=== PATIENT | female | born 1945 | race Caucasian/White ===

== ENCOUNTER → 2017-06-13 | Outpatient (CLI) | payer OTHER ==
[~2017-06-13] MED LIST: ASPIR 8181 MG PO; CELEBREX 200 M200 M1 PO; CENTRUM SILVER1 EAC4 PO; FISH OIL 1,001000 M2 PO; IBUPROFEN 200200 M1 PO; LEVAQUIN 500 M500 M2 PO; LISINOPRIL10 MG PO; METFORMIN HCL500 MG PO; MOBIC7.5 MG PO; NORCO 5-325 TA1 EACH PO; NORVASC2.5 MG PO; NORVASC5 MG PO; PROTONIX40 M1 PO; SALONPAS GEL-P1 EAC1 TP; SENNA-S TABLET1 EACH PO; TRICOR145 MG PO; VESICARE 5 MG TA5 MG PO; VITAMIN B-12500 MCG PO; ZOCOR20 MG PO
== END ==
LOC: RAD 01:41
DX: Z12.31 Encounter for screening mammogram for malignant neoplasm of breast (principal)

== ENCOUNTER → 2017-09-24 | Outpatient (CLI) | payer OTHER ==
[~2017-09-24] VITALS: Ht 157.5 cm; Wt 126.1 kg
[~2017-09-24] MED LIST changes: -LEVAQUIN 500 M500 M2 PO; -NORCO 5-325 TA1 EACH PO; -NORVASC5 MG PO; -PROTONIX40 M1 PO; -SENNA-S TABLET1 EACH PO
--- NOTE | ~2017-09-24 | HPC ---
[facility] [place] [address] PAIN MANAGEMENT CONSULTATION Name: TOPHER MARTÍNEZ Room #: REG [facility] Sophia.#: [id number] Admission: 09/24/17 Attend Phys: Gee Allen DO Discharge: Date of : 45 Report #: [id number] THIS REPORT FOR: //name// CC: Hector Allen DATE OF SERVICE: 09/24/2017 HISTORY OF PRESENT ILLNESS: The patient is a 72-year-old female, prior seen in the pain clinic approximately 3 weeks ago for symptomatic lumbar radiculopathy, given a single epidural injection at that time with some 75% improvement of pain, though symptoms have begun to recur. The patient currently rates pain at 5 on a VAS. Notes pain is in the low back, radiating down the left buttock and leg, exacerbates with standing, walking and bending. She incidentally notes a history of some paresthesia going into the right fourth and fifth finger. PHYSICAL EXAMINATION: GENERAL: Shows pleasant 72-year-old female, morbidly obese with a BMI of 50.8 kilograms per meter squared. MUSCULOSKELETAL: Cervical range of motion is full, negative Lhermitte's. Upper extremity strength is preserved. Deep tendon reflexes are preserved, biceps, triceps, brachioradialis. Modestly positive Tinel's over the right radial and lesser so over the ulnar; left side is negative. Rises from chair using the armrest. Diffuse tenderness across the low back, moderately antalgic gait, positive straight leg raise on the left. Symptoms essentially unchanged from presentation, though subjective pain score is improved. ASSESSMENT: Symptomatic lumbar radiculopathy by clinical exam and history with a 75% improvement following initial injection, symptoms are beginning to recur. RECOMMENDATION: Repeat epidural injection under fluoroscopy today, L3-L4 left to midline. Follow up in 1 month for reevaluation. Cancel if doing well. PROCEDURE: Lumbar epidural steroid injection. PROCEDURE NOTE: After both written and informed consent to include risk of spinal cord damage, increased pain, weakness and dural puncture, the patient was taken to the fluoroscopy suite, placed in the prone position. After sterile prep and drape, a skin wheal with lidocaine was raised. A 22-gauge epidural Tuohy needle was inserted in the midline at L3-L4 left to midline with good loss to resistance. Negative aspiration for cerebrospinal fluid or blood was noted. Then 1 mL of Omnipaque under biplanar fluoroscopy showed good spread within the epidural space. This was followed with 80 mg of triamcinolone plus 1 mL of 1.5% preservative-free Xylocaine, 0.5 mL Xylocaine was then injected to flush the [address] [address] PAIN MANAGEMENT CONSULTATION Name: TOPHER MARTÍNEZ Room #: REG ABHIJEET Prater#: [id number] Admission: 09/24/17 Attend Phys: Gee Allen DO Discharge: Date of : 45 Report #: [id number] needle; it was removed. The patient was monitored for an appropriate period of time and discharged in good and stable condition. <ELECTRONICALLY SIGNED> By: Gee Allen DO 09/26/17 0819 1243 1701 Gee Allen DO /nt
[2017-09-24 12:28] VITALS: BP 166/93
== END | disposition home or self-care (01) ==
LOC: PAIN 07:04
DX: M54.16 Radiculopathy, lumbar region (principal); Z68.43 Body mass index [BMI] 50.0-59.9, adult; E66.01 Morbid (severe) obesity due to excess calories; Z87.891 Personal history of nicotine dependence

== ENCOUNTER → 2017-12-26 | Outpatient (CLI) | payer OTHER ==
[~2017-12-26] MED LIST changes: +PROTONIX40 M1 PO
== END ==
LOC: RAD 01:29
DX: N63.20 Unspecified lump in the left breast, unspecified quadrant (principal); N63.10 Unspecified lump in the right breast, unspecified quadrant; R92.2 Inconclusive mammogram; R92.8 Other abnormal and inconclusive findings on diagnostic imaging of breast

== ENCOUNTER → 2017-12-28 | Outpatient (CLI) | payer OTHER ==
[~2017-12-28] VITALS: Ht 154.9 cm; Wt 127.0 kg
--- NOTE | ~2017-12-28 | P ---
[facility] [place] [address] PROCEDURE REPORT Name: TOPHER MARTÍNEZ Room #: REG [facility].#: [id number] Admission: 12/28/17 Attend Phys: Ayo Elizabeth MD Discharge: Date of : 45 Report #: [id number] THIS REPORT FOR: //name// CC: Ayo Perez MD OUTPATIENT COLONOSCOPY BRIEF HISTORY: The patient is a 72-year-old woman for average risk screening colonoscopy. PREOPERATIVE DIAGNOSIS: Average risk colonoscopy. POSTOPERATIVE DIAGNOSES: 1. Normal screening colonoscopy. 2. Internal hemorrhoids. MEDICATIONS: Deep sedation with propofol per anesthesia. SPECIMEN: None. ESTIMATED BLOOD LOSS: None. PROCEDURE: Colonoscopy to cecum and terminal ileum. DESCRIPTION OF PROCEDURE: With the patient in left lateral decubitus position, digital examination was completed which revealed no abnormalities. Subsequently, the Olympus video colonoscope was introduced into the rectum, advanced under direct vision to the cecum. Done with minimal difficulty. The cecum was identified by the ileocecal valve and the appendiceal orifice. I was able to visualize the distal segment of terminal ileum, which was inspected and noted to be unremarkable. At that point, the scope was slowly withdrawn and careful circumferential views obtained. Overall, the prep was good. The mucosa was within normal limits, normal vascular pattern, normal light reflex. As we withdrew the scope, the mucosa was within normal limits, normal vascular pattern, normal light reflex. No mucosal abnormalities were seen. Polyps were not seen on this examination. The scope was withdrawn in the rectum. Upon retroflexion, small hemorrhoids were seen. Scope was withdrawn. The patient tolerated the procedure well. CONDITION OF THE PATIENT UPON DISCHARGE: Following procedure, the patient was drowsy, arousable and conversant and will be discharged to home when fully ambulatory. INSTRUCTIONS TO THE PATIENT AND FAMILY AT THE TIME OF DISCHARGE: No neoplastic lesions were seen. This is considered a negative average risk screening [facility] [address] [place] [address] PROCEDURE REPORT Name: TOPHER MARTÍNEZ Room #: REG [facility]#: [id number] Admission: 12/28/17 Attend Phys: Ayo Elizabeth MD Discharge: Date of : 45 Report #: [id number] colonoscopy. At this point, would advise the patient to return for followup colon exam in 10 years. Also, advised the patient to lose weight as obesity is a risk factor for colon cancer. She will return to care of Dr. Hector Perez and return to see me as needed. Last colonoscopy was 10 years ago. Withdrawal time from the cecum was 11 minutes 23 seconds. <ELECTRONICALLY SIGNED> By: Ayo Elizabeth MD 12/28/17 1645 1000 [id number] Ayo Elizabeth MD /nt
== END | disposition short-term general hospital (02) ==
LOC: GI 08:06
DX: Z12.11 Encounter for screening for malignant neoplasm of colon (principal); K64.8 Other hemorrhoids; I10 Essential (primary) hypertension; E11.9 Type 2 diabetes mellitus without complications; E66.9 Obesity, unspecified; E78.5 Hyperlipidemia, unspecified; K21.9 Gastro-esophageal reflux disease without esophagitis; Z79.82 Long term (current) use of aspirin; Z79.84 Long term (current) use of oral hypoglycemic drugs; Z79.899 Other long term (current) drug therapy; Z87.891 Personal history of nicotine dependence; Z98.890 Other specified postprocedural states; Z68.43 Body mass index [BMI] 50.0-59.9, adult
CPT/HCPCS: 62110; 62900

== ENCOUNTER → 2018-01-01 | Outpatient (CLI) | payer OTHER ==
--- NOTE | ~2018-01-01 | PATH ---
[facility] [address] [place] [address] PATHOLOGY RPT PROCEDURE Name: SARA MILLER Room #: REG ABHIJEET Cortes.#: [id number] Admission: 01/01/18 Date of : 45 Discharge: Report #: [id number] Path Case #: [id number] [facility] Accession Number: [id number] . 01 Material submitted: . PART A: RIGHT BREAST MASS PART B: LEFT MID CENTRAL BREAST . 01 Clinical history: . A. Right breast mass B. Left breast calcifications . 02 Diagnosis: A. Breast, right breast 12:00 SA, needle core biopsy: - DETACHED FRAGMENTS OF ATYPICAL PAPILLARY LESION (PLEASE SEE COMMENT). . B. 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 - Negative for atypia or malignancy (please see comment). [facility]/01/04/2018 . 02 Comment: Immunohistochemical stains are performed on block A3. The papilloma shows loss of mosaic pattern with CK5/6, and loss of myoepithelial cells with nonreactive pattern on p63 and SMMHC immunohistochemical stains within the detached fragments of the papillary lesion. The differential diagnosis of this lesion is either atypical ductal hyperplasia involving a papilloma, or papillary DCIS. Please note sample represents a minute portion of a larger lesion and may not be entirely access representative. . CK5/6 is performed on block B2 and shows intact mosaic pattern consistent with usual ductal hyperplasia. . Co-review: Dr. Kamryn Berrios. (IUV:pit 01/04/2018) . 02 Electronically signed: . Delicia Glaser MD, Pathologist NPI- [id number] . 01 Gross description: . A. Received in formalin labeled "Sara Miller, right breast," and additionally labeled on the requisition as "12:00 SA," are multiple needle cores of yellow-lopez fibrofatty tissue measuring 1.3 x 1.6 x 0.4 cm in aggregate dimensions. The tissue submitted in its entirety in cassette A1 through A3. The cold ischemic time and total formalin fixation time is [address] [address] PATHOLOGY RPT PROCEDURE Name: SARA MILLER Room #: REG [facility] Prater#: [id number] Admission: 01/01/18 Date of : 45 Discharge: Report #: [id number] Path Case #: [id number] unknown. The specimen will be out of formalin at 9:50 PM, December 02, 2017. . B. Received in formalin labeled "Sara Miller, left," and additionally labeled on the requisition as "central inferior," are multiple needle cores of yellow-lopez fibrofatty tissue measuring 3.8 x 3.9 x 1.4 cm in aggregate dimensions. Also received is a plastic cassette containing multiple cores of yellow-lopez fibrofatty tissue measuring 1.3 x 0.6 x 0.4 cm in maximum dimensions. The tissue in the cassette is transferred to cassette B3, and the remaining tissue submitted entirely in cassette B1 and B2. The cold ischemic time and total formalin fixation time is unknown. The specimen will be out of formalin at 9:50 PM, December 02, 2017. (TSD; 01/01/2018) TOB/TOB . 02 Microscopic: . . . 02 Pathologist provided ICD-10: D24.1, N62 . 02 CPT . 521551, 903419, P53410, Z23935 Performed at: [address], [place] [id number] MD Alen Walsh MD Phone: [phone] Performed at: [address] [id number] MD Delicia Glaser MD Phone: [phone]
== END | disposition home or self-care (01) ==
LOC: ULTRA 09:35
DX: D24.2 Benign neoplasm of left breast (principal); D24.1 Benign neoplasm of right breast; N60.82 Other benign mammary dysplasias of left breast; R92.1 Mammographic calcification found on diagnostic imaging of breast; I10 Essential (primary) hypertension; E11.9 Type 2 diabetes mellitus without complications; E78.5 Hyperlipidemia, unspecified; E66.09 Other obesity due to excess calories; K21.9 Gastro-esophageal reflux disease without esophagitis; Z79.82 Long term (current) use of aspirin; Z79.899 Other long term (current) drug therapy; Z87.891 Personal history of nicotine dependence; Z98.890 Other specified postprocedural states

== ENCOUNTER → 2018-03-04 | Outpatient (CLI) | payer OTHER ==
[~2018-03-04] MED LIST changes: +LEVAQUIN 500 M500 M2 PO; +NORCO 5-325 TA1 EACH PO; +NORVASC5 MG PO; +SENNA-S TABLET1 EACH PO
== END ==
LOC: RAD 11:48
DX: J18.9 Pneumonia, unspecified organism (principal); I10 Essential (primary) hypertension; E11.9 Type 2 diabetes mellitus without complications; E66.01 Morbid (severe) obesity due to excess calories

== ENCOUNTER → 2018-05-14 | Outpatient (CLI) | payer OTHER ==
--- NOTE | ~2018-05-14 | SLE ---
[facility] [place] [address] POLYSOMNOGRAPHY STUDY Name: TOPHER MARTÍNEZ Room #: REG [facility]#: [id number] Admission: 05/14/18 Attend Phys: Buck Serrano MD Discharge: Date of : 45 Report #: [id number] THIS REPORT FOR: //name// CC: Buck Mora MD DATE OF SERVICE: 05/14/2018 ATTENDING PHYSICIAN: Dr. Arcenio Mora. The patient is 72 years old who weighs 282 pounds and is 61 inches tall with a BMI of 53.3. The patient's [place] score was 6. The patient underwent home sleep study performed by [facility]. Total recording time was 455 minutes. During the night study, the patient had 56 obstructive apneas, 2 mixed apneas, no central apneas and 310 hypopneas. The patient's apnea hypopnea index was 61 per hour. Supine index 61 per hour as well. Nocturnal oximetry study revealed an average oxygen saturation of 83% with the lowest of 60%. 384 minutes were spent at an oxygen saturation of less than 90% and 102 minutes were spent at an oxygen saturation of less than 80%. Mean heart rate was 81 beats per minute with a maximum 108 beats per minute. IMPRESSION: 1. Severe sleep apnea-hypopnea syndrome at an apnea hypopnea index of 61 per hour. 2. Severe nocturnal hypoxia secondary to obstructive sleep apnea. RECOMMENDATIONS: 1. The patient should return for in-lab CPAP titration study. 2. Once optimum CPAP pressure is achieved, then follow up in 4-6 weeks to assess compliance with CPAP and to document clinical improvement. 3. Weight loss is strongly advised. 4. Avoid BATCH FREEZER depressants. 5. Cautioned regarding driving until symptoms of sleep apnea resolved with the use of CPAP. <ELECTRONICALLY SIGNED> By: Buck Serrano MD 05/19/182219 03 11 Buck Serrano MD /nt
== END ==
LOC: SLEEPLAB 10:06
DX: G47.33 Obstructive sleep apnea (adult) (pediatric) (principal); R09.02 Hypoxemia

== ENCOUNTER → 2018-08-05 | Outpatient (CLI) | payer OTHER | LOC: NUC 10:12 | DX: M85.851 Other specified disorders of bone density and structure, right thigh (principal); Z78.0 Asymptomatic menopausal state; M54.5 Low back pain ==

== ENCOUNTER → 2018-09-08 | Outpatient (CLI) | payer OTHER ==
--- NOTE | 2018-09-11 16:03 | SLE ---
[facility] [place] [address] POLYSOMNOGRAPHY STUDY Name: TOPHER MARTÍNEZ Room #: REG [facility].#: [id number] Admission: 09/08/18 ������������������ Attend Phys: Buck Serrano MD Discharge: ������������������ Date of : 45 Report #: [id number] THIS REPORT FOR: //name// CC: Buck Mora MD DATE OF SERVICE: 09/08/2018 SLEEP STUDY ATTENDING PHYSICIAN: Dr. Arcenio Mora. The patient is 73 years old, who weighs 282 pounds with a BMI of 53. The patient's [place] score was 12. The patient had a home sleep study and was found to have severe obstructive sleep apnea at an AHI of 61 per hour. The patient was referred back for in-lab CPAP titration study. The patient also had severe nocturnal hypoxia as well. During the night of study, the patient spent 521 minutes in bed and slept for 345 minutes with a sleep efficiency of 66%. Sleep latency was 18 minutes with a REM latency of 131 minutes. Overall, sleep architecture showed increased stage 1 and stage 2 sleep, absent N3 sleep and normal REM sleep. EKG monitoring revealed an average heart rate of 71 beats per minute. No sustained arrhythmias observed. PLMS were seen at an index of 39 per hour and 4 per hour caused EEG arousals. The patient was started on CPAP initially, but the patient had panic attack with CPAP and was switched to BiPAP at 8/4. The patient's BiPAP pressure was increased all the way up to 22/15, however respiratory events were still persistent, especially hypopneas. The patient was then switched to CPAP at a pressure of 17 cm water and continued towards the end at the same pressure. The patient had 121 minutes of sleep including 39 minutes of REM sleep. The patient had lateral REM sleep. No supine sleep observed. The patient did well at this pressure at an AHI of 0.5 per hour and oxygen saturation remained above 88%. This would be the final therapeutic pressure. IMPRESSION: 1. Severe sleep apnea diagnosed by home sleep study. 2. Moderate periodic limb movements of sleep. RECOMMENDATIONS: 1. CPAP at 17 cm water completely eliminated the patient's sleep apnea and should be used on a nightly basis. [facility] [address] [place] [address] POLYSOMNOGRAPHY STUDY Name: TOPHER MARTÍNEZ Room #: REG [facility] Moi#: [id number] Admission: 09/08/18 ������������������ Attend Phys: Buck Serrano MD Discharge: ������������������ Date of : 45 Report #: [id number] 2. Follow up in 4-6 weeks to assess compliance and to document clinical improvement with CPAP. 3. Weight loss is strongly advised. 4. Avoid [employer] depressants. 5. Cautioned regarding driving until symptoms of sleep apnea resolve with the use of CPAP. 6. The patient should also be further evaluated for symptoms of restless legs during the day and if present, it can be treated with dopaminergic agonist agents. ��������������������������������������������� <ELECTRONICALLY SIGNED> ���������������������������������������� By: Buck Serrano MD ��������������������������������������������� 09/11/18 1603 0725 0805 Buck Serrano MD /nt
== END ==
LOC: SLEEPLAB 16:09
DX: G47.33 Obstructive sleep apnea (adult) (pediatric) (principal); G47.61 Periodic limb movement disorder

== ENCOUNTER → 2018-12-19 | Outpatient (CLI) | payer OTHER | LOC: RAD 09:05 | DX: R92.1 Mammographic calcification found on diagnostic imaging of breast (principal); R92.2 Inconclusive mammogram; Z90.11 Acquired absence of right breast and nipple; Z85.3 Personal history of malignant neoplasm of breast ==

== ENCOUNTER → 2019-05-02 | Outpatient (CLI) | payer OTHER ==
[~2019-05-02] VITALS: Ht 154.9 cm; Wt 128.8 kg
[2019-05-02 09:30] VITALS: BP 179/63
[2019-05-02 09:30] LABS: HEMATOCRIT 43.5 % (37.0-47.0); HEMOGLOBIN 14.4 gm/dL (12.0-15.0); MCHC 33.2 g/dL (28.0-37.0); MCV 93.5 fL (80.0-100.0); RBC 4.65 mil/uL (4.20-5.00); RDW 14.2 % (10.5-14.5); WBC 7.9 thou/uL (4.0-11.0)
[2019-05-02 09:38] LABS: POTASSIUM 4.7 mmol/L (3.5-5.1)
--- NOTE | 2019-05-12 11:20 | CATHLAB ---
[facility] [address] [place] [address] INVASIVE PROCEDURE REPORT Name: TOPHER MARTÍNEZ [id number] Admission: 05/02/19 Attend Phys: Twan Schmid Discharge: Date of : 45 Report #: [id number] THIS REPORT FOR: //name// APPROVED REPORT Study performed: 05/02/2019 12:17:52 Patient Details Patient Status: Out-Patient Room #: The patient is a 73 year-old female Event Personnel Twan Walter Aircraft Designer, Irma Zhang RTR, WILDLIFE REMOVAL SPECIALIST Monitor, Chika Allen RN RN, Geni Good RTR Scrub Procedures Performed Art Access - R femoral artery* Left Heart Cath w/or w/o Coronaries [id number] [facility] Hemostasis with Manual pressure 02735 Mod Sed Same Phys/QHP Ea 926008 98152 Initial Mod Sed Same Phys/QHP Gr5y 331708, supervision of conscious sedation Indication Positive stress test Procedure Narrative The Right Groin^ was infiltrated with 1% Lidocaine subcutaneous anesthesia. A PINNACLE 4FR Sheath #[id number] sheath was inserted into the RFA^. Coronary angiography was performed using coronary diagnostic catheters. The right coronary system was accessed and visualized with a JR4 catheter. The left coronary system was accessed and visualized with a JL4 catheter. The left ventricle was accessed and visualized with a ANGLED PIGTAIL catheter. Left ventricular/Aortic Valve gradient assessed via catheter pullback. Hemostasis was obtained with manual pressure following sheath removal without any complications. There was no hematoma. Intraoperative Conscious Sedation Sedation start time: 12:06 Case end Time: 12:44 Versed 2 mg Fluoro Time: 4.60 minutes Dose: DAP 49444.00 cGycm2 1813 mGy Contrast Type and Amount: Omnipaque 50 ml [facility] [place] [address] INVASIVE PROCEDURE REPORT Name: TOPHER MARTÍNEZ Room #: REG ANDREA Prater#: [id number] Admission: 05/02/19 Attend Phys: Twan Schmid Discharge: Date of : 45 Report #: [id number] Coronary Angiography The patient's coronary anatomy is right dominant. Diagnostic Cath Left Main Left main is normal origin and caliber bifurcates that anterior descending left circumflex. It is short in length and lumen irregularities are noted but no obstructive lesions present LAD Moderate caliber type III vessel courses in the anterior interventricular sulcus giving rise to septal and diagonal branches. It is tapers towards the apex and has luminal irregularities. In the distal third the vessel is quite small at less than 1 mm in diameter and appears to be a focal eccentric lesion that is greater than 50%. Diagonal 1 Small insignificant caliber vessel at high grade lesion Diagonal 2 Small insignificant caliber vessel without high-grade lesions Circumflex Moderate caliber vessel courses in the AV groove. Gives rise to lateral wall marginal branches and terminates small-caliber vessel and the posterior aspect of the left ventricle. Is free of high-grade lesions noted OM1 Small to moderate caliber vessel coursing along lateral aspect of the left ventricle. There is a presence of a small narrowing the distal third of the vessel after a bifurcating branch origin is noted. This is not flow-limiting but may be less than 50% in the vessel that's half a millimeter in diameter OM2 Insignificant caliber posterior wall branch OM3 Insignificant caliber posterior wall branches Right Coronary Moderate caliber vessel of normal origin coursing the AV groove to the crux of the heart to work is a moderate calibered posterior descending artery. This was circulation consists of 2 small posterior wall branches tortuous in its course towards the apex are free of high-grade disease. The vessel itself is free of high-grade disease R PDA Moderate caliber vessel coursing towards the apex tapering rapidly the distal third. It is tortuous in its course but free of high-grade stenosis Hemodynamics The aortic pressure is 150/78 mmHg with a mean of 106 mmHg. The left ventricular pressure is 175/18 mmHg with a mean of mmHg. The left ventricular end diastolic pressure is 30 mmHg. Conclusion [facility] [address] [place] [address] INVASIVE PROCEDURE REPORT Name: TOPHER MARTÍNEZ Room #: REG ANDREA Praetr#: [id number] Admission: 05/02/19 Attend Phys: Twan Schmid Discharge: Date of : 45 Report #: [id number] 1. Essentially normal coronary arteries with only luminal irregularities present 2. Normal hemodynamics Recommendations Medical Therapy <ELECTRONICALLY SIGNED> By: Twan Walter MD 05/12/19 1120 1120 112 Twan Walter MD /INF
== END | disposition home or self-care (01) ==
LOC: CATH 08:40
PROVIDERS: Internal Medicine
DX: R94.39 Abnormal result of other cardiovascular function study (principal); R06.09 Other forms of dyspnea; I11.0 Hypertensive heart disease with heart failure; I50.9 Heart failure, unspecified; E11.9 Type 2 diabetes mellitus without complications; E78.5 Hyperlipidemia, unspecified; K21.9 Gastro-esophageal reflux disease without esophagitis; J44.9 Chronic obstructive pulmonary disease, unspecified; E66.01 Morbid (severe) obesity due to excess calories; Z98.890 Other specified postprocedural states; Z87.891 Personal history of nicotine dependence; Z79.82 Long term (current) use of aspirin; Z79.899 Other long term (current) drug therapy; Z68.43 Body mass index [BMI] 50.0-59.9, adult

== ENCOUNTER → 2019-12-22 | Outpatient (CLI) | payer OTHER | LOC: BC 10:46 | PROVIDERS: ATTEND Family Medicine | DX: D05.11 Intraductal carcinoma in situ of right breast (principal) ==

== ENCOUNTER 2020-01-15 14:31 | Inpatient (IN) | payer OTHER ==
[~2020-01-15] VITALS: Ht 152.4 cm; Wt 134.7 kg
[2020-01-15 14:50] VITALS: BP 103/57
[2020-01-15 15:42] LABS: BASOPHILS 0.7 % (0.0-2.0); EOSINOPHILS 1.2 % (0.0-3.0); HEMATOCRIT 41.8 % (37.0-47.0); HEMOGLOBIN 14.3 gm/dL (12.0-15.0); LYMPHOCYTES 8.6 % (24.0-44.0); MCH 32.4 pg (26.0-34.0); MCHC 34.1 g/dL (28.0-37.0); MONOCYTES 9.3 % (1.0-8.0); PLATELET COUNT 578 thou/uL (150-400); POLYS 80.2 % (36.0-66.0); RDW 14.9 % (10.5-14.5); WBC 9.9 thou/uL (4.0-11.0)
[2020-01-15 16:34] LABS: ANION GAP 5 mmol/L (7-16); BUN 23 mg/dL (7-18); CALCIUM 9.4 mg/dL (8.5-10.1); CHLORIDE 103 mmol/L (98-107); CO2 31 mmol/L (21-32); CREATININE 0.9 mg/dL (0.6-1.0); GLUCOSE 120 mg/dL (74-106); SODIUM 139 mmol/L (136-145)
[2020-01-15 16:43] LABS: TROPONIN-I <0.06 ng/mL (<0.06)
[2020-01-15 18:22] VITALS: BP 133/69
[2020-01-15 18:40] VITALS: BP 139/81
[2020-01-15 19:50] VITALS: BP 139/65
[2020-01-15 23:18] VITALS: BP 139/65
[2020-01-15 23:30] LABS: TSH 0.221 uIU/mL (0.358-3.740)
[2020-01-16 00:17] VITALS: BP 136/75
[2020-01-16] MEDS ORDERED: ANORO ELLIPTA1 EACH (00:28)
--- NOTE | 2020-01-16 01:27 | NUR ---
ASSUMED CARE OF PATIENT AT 1900. PATIENT CONTINUES ON CARDIZEM DRIP FOR AFIB. AT 2310 INCREASED DRIP RATE TO 15 MG/HR ACCORDING TO PROTOCOL HEART RATE CONSISTENTLY IN 120s. PATIENT TOLERATED CHANGE WELL AND HEART RATE DECREASED MOSTLY TO 90s BUT FLUCTUATED BETWEEN UPPER 80s AND 100s. PATIENT HAD NO C/O PAIN DURING ASSESSMENTS. PATIENT DOES HAVE A LOOSE PRODUCTIVE COUGH WITH COARSE/DIM LUNG SOUNDS. PATIENT AMBULATES WITH WALKER TO BATHROOM AND IS A BIT UNSTEADY ON FEET.
[2020-01-16 03:05] VITALS: BP 127/55
[2020-01-16 04:37] VITALS: BP 127/55
[2020-01-16 05:32] LABS: ABSOLUTE NEUTROPHILS 6.3 thou/uL (1.4-8.2); BASOPHILS 0.9 % (0.0-2.0); EOSINOPHILS 1.7 % (0.0-3.0); HEMATOCRIT 40.7 % (37.0-47.0); HEMOGLOBIN 13.2 gm/dL (12.0-15.0); LYMPHOCYTES 13.1 % (24.0-44.0); MCH 31.2 pg (26.0-34.0); MCHC 32.4 g/dL (28.0-37.0); MCV 96.1 fL (80.0-100.0); MONOCYTES 9.1 % (1.0-8.0); POLYS 75.2 % (36.0-66.0); RBC 4.24 mil/uL (4.20-5.00); RDW 15.3 % (10.5-14.5); WBC 8.3 thou/uL (4.0-11.0)
[2020-01-16 05:41] LABS: CALCIUM 8.9 mg/dL (8.5-10.1); CREATININE 1.2 mg/dL (0.6-1.0); MAGNESIUM 1.8 mg/dL (1.8-2.4); POTASSIUM 4.5 mmol/L (3.5-5.1)
[2020-01-16 05:53] LABS: PLATELET COUNT 485 thou/uL (150-400)
--- NOTE | 2020-01-16 09:10 | EKG ---
[facility] Stephane [address] [place] [address] ELECTROCARDIOGRAM REPORT Name: TOPHER MARTÍNEZ Room #: 205-P ADM IN M.R.#: [id number] Admission: 01/15/20 Attend Phys: Billy Storm MD Discharge: Date of : 45 Report #: [id number] THIS REPORT FOR: cc: Hetcor Perez MD, Rene P. 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: KF : 1945 Requested By: Dean Romero Order Number: [id number] MD: Christoph Hunt Measurements Intervals [place] Rate: 141 P: [place]: QRS: -2 QRSD: 101 T: 70 QT: 313 QTc: 480 Interpretive Statements Atrial fibrillation Poor R wave progression Compared to ECG 02/05/2018 14:32:58 Sinus rhythm no longer present Electronically Signed On 01-16-2020 9:10:09 CDT by Christoph Hunt [email or web address] <ELECTRONICALLY SIGNED> By: Christoph Hunt MD, [facility] 01/16/20 0910 1502 1502 Christoph Hunt MD, [facility] /EPI
--- NOTE | 2020-01-16 09:18 | EKG ---
[facility] Stephane Calabrese [facility] [place] [address] ELECTROCARDIOGRAM REPORT Name: TOPHER MARTÍNEZ Room #: 205-P ADM IN M.R.#: [id number] Admission: 01/15/20 Attend Phys: Billy Storm MD Discharge: Date of : 45 Report #: [id number] THIS REPORT FOR: cc: Hector Perez MD, Rene P. MD Lundgren,Christoph Sheffield MD [facility] ~ THIS REPORT FOR: //name// [facility] Test Date: 2020-01-16 Test Time: 07:19:48 Pat Name: TOPHER MARTÍNEZ Department: Room: 205 P Gender: F System Development Manager: JUNE : 1945 Requested By: Christoph Hunt Order Number: [id number] MD: Christoph Hunt Measurements Intervals [place] Rate: 95 P: [place]: QRS: 4 QRSD: 89 T: 42 QT: 343 QTc: 431 Interpretive Statements Atrial fibrillation Poor R wave progression Compared to ECG 01/15/2020 15:02:41 Heart rate has slowed Electronically Signed On 01-16-2020 9:18:41 CDT by Christoph Hunt [email or web address] <ELECTRONICALLY SIGNED> By: Christoph Hunt MD, [facility] 01/16/20917 8 8 Christoph Hunt MD, [facility] /EPI
[2020-01-16 10:39] VITALS: BP 138/70
[2020-01-16 13:03] VITALS: BP 116/82
--- NOTE | 2020-01-16 14:20 | NUR ---
Nutrition: pt admit with SOB, increased use of 02. Seen due to high risk screen for poor intake, weight loss. COVID test pending so RD did not enter room. Attempted to speak with pt via phone however she did not answer. PMH: HTN, HLD, COPD, DM, GERD. New admit and no intake records available yet. Did note pt has been grieving recent of . Weight hx in [place] showing current weight down 5# since 2018. Current BMI 53 indicating extreme class 3 obesity. Will follow po intake trends but consider low nutrition risk for now.
--- NOTE | 2020-01-16 16:40 | NUR ---
PT TRANSFER FROM CCU TO ROOM 357, PT ASSESSMENT COMPLETED. PT LAERT AND ORIENTED X4, DENIES CHEST PAIN, NAUSEA AND VOMITING. PT IS ON 1L OF OXYGEN, NO SIGNS OF DISTRESS NOTED, SOB WITH EXERTION. CALL LIGHT AND TABLE IN REACH. PT DENIES ANY NEED AME, WILL CONTINUE TO MONITOR.
--- NOTE | 2020-01-16 16:44 | NUR ---
Chart reviewed and case opened to follow for dc planning. Attempted to reach pt via phone w/o success. Pt is in enhanced ISO covid+. Needle Molder spoke with her son Ko via phone. He indicates that the pt lives at home in [place], [place]. Her dtr Carley lives with her along with a gson and several great grandchildren. The pt lost her spouse 3 weeks ago, and he here at [facility] in the ICU. They had a two weeks ago and she has not felt well since. Other family members have also tested positive for covid since the . The pt has hx of copd and is on home o2 at [address] [place] [address]. She has expressed grief and loss to staff and feels very overwhelmed since the of her spouse. She uses a rolator walker at home and family helps with adl's and IADL's. Her pcp is Dr. Perez. The pt does not have a living will, dpoa for hc or adv directive in place. Support provided. Family is trying to notify everyone at the and get tested. Will follow.
[2020-01-16 21:00] VITALS: BP 1134/82; BP 134/82
[2020-01-17 05:10] VITALS: BP 98/47
[2020-01-17 06:54] LABS: BASOPHILS 1.2 % (0.0-2.0); EOSINOPHILS 1.8 % (0.0-3.0); HEMOGLOBIN 14.1 gm/dL (12.0-15.0); LYMPHOCYTES 8.7 % (24.0-44.0); MCH 31.3 pg (26.0-34.0); MCV 97.6 fL (80.0-100.0); MONOCYTES 7.4 % (1.0-8.0); PLATELET COUNT 436 thou/uL (150-400); POLYS 80.9 % (36.0-66.0); RBC 4.51 mil/uL (4.20-5.00); RDW 15.6 % (10.5-14.5); WBC 8.7 thou/uL (4.0-11.0)
[2020-01-17 07:18] LABS: ALBUMIN 3.3 g/dL (3.4-5.0); CALCIUM 9.1 mg/dL (8.5-10.1); CREATININE 1.2 mg/dL (0.6-1.0); POTASSIUM 5.2 mmol/L (3.5-5.1); TOTAL BILIRUBIN 0.5 mg/dL (0.2-1.0); TOTAL PROTEIN 7.3 g/dL (6.4-8.2)
--- NOTE | 2020-01-17 07:49 | NUR ---
ASSUMED CAERO OF PT AT 1900HRS. PT AOX4 AND LETS NEEDS BE KNOWN. ASSESSMENTS CHARTED. O2 VIA NC CONTINUED AT 3L. PT REPORTED SOME PAIN AND WAS TREATED WITH PRN PAIN MEDS. PT WAS ABLE TO GET COMFORTABLE AND SLEEP PART OF THE SHIFT.
--- NOTE | 2020-01-17 11:09 | NUR ---
SPIRITUAL CARE CONSULT [phone] WAS COMLETED BY THIS BUSINESS MACHINE MECHANIC.
[2020-01-17 11:19] VITALS: BP 123/61
--- NOTE | 2020-01-17 12:41 | NUR ---
PT CARE ASSUMED AT 0700, PT ALERT AND OREINTED X4, DENIES CHEST PAIN, NAUSEA AND VOMITNG. PT IS ON 3L OF O2, NO SIGNS OF DISRESS UNLESS WITH ACTIVITY. PT COMPLAINS OF INTERMITTENT HIP PAIN, TYLENOL GIVEN ORDERED. CALL LIGHT AND TABLE INREACH. BED AT LOWEST LEVELW ITH ALARM ON.
[2020-01-17 13:26] LABS: INR 1.1; PROTIME 11.2 Seconds (9.3-11.4)
--- NOTE | 2020-01-17 14:10 | NUR ---
1200 PT HR IN 140'S SUSTAINED WHILE PT ASLEEP, DR. COMFORT COLLADO, GAVE ORDERS FOR ATENOLO 50MG BID, WITH A DOSE NOW. 1300 PT HR IN THE LOW 120'S, WILL CONTINUE TO MONTIOR.
[2020-01-17 15:21] VITALS: BP 107/63
--- NOTE | 2020-01-17 16:37 | NUR ---
PT TRANSFERRED FROM ICU TO ROOM 356, PT ALERT TO SELF, NON VERBAL. UNABLE TO ASSESS ORIENTEATION AND PAIN. PT IS ON 4L OF O2, NO SIGNS OF DISTRESS NOTED. KEYS AND FECAL MGT IN PLACE AND PATENT. PEG TUBE IN PLACE, PLACEMENT CHECKED, TUBEFEEDING RESTATRED. PT SOUNDS CONGESTED, UNABLE TO COUGH OUT SPUTUM, SUCTION SET UP AND PT SUCTION PRN. PT REPOSTION Q2, BED AT LOWEST LEVEL WITH ALARM ON.
[2020-01-17 19:41] VITALS: BP 117/86
--- NOTE | 2020-01-17 22:52 | NUR ---
PT IS ALERT AND ORIENTED X4. VSS. AFIB ON MONITOR. DENIED PAIN. NO SOA. REQUESTED MELATONIN FOR SLEEP. NO S/S DISTRESS PRESENTLY.
[2020-01-18] VITALS (7 sets, daily range): BP systolic 104–139; BP diastolic 65–81
[2020-01-18 14:55] LABS: HEMATOCRIT 41.9 % (37.0-47.0); HEMOGLOBIN 13.7 gm/dL (12.0-15.0); MCH 31.8 pg (26.0-34.0); MCHC 32.7 g/dL (28.0-37.0); MCV 97.3 fL (80.0-100.0); RBC 4.31 mil/uL (4.20-5.00); RDW 16.1 % (10.5-14.5); WBC 11.8 thou/uL (4.0-11.0)
[2020-01-18 14:59] LABS: HCO3 34.8 mmol/L (22.0-26.0); PO2 88.4 mmHg (80.0-100.0)
[2020-01-18 15:00] LABS: pH 7.138 (7.360-7.450)
[2020-01-18 15:16] LABS: CALCIUM 8.8 mg/dL (8.5-10.1); CREATININE 1.6 mg/dL (0.6-1.0)
[2020-01-18 15:19] LABS: POTASSIUM 6.2 mmol/L (3.5-5.1)
[2020-01-18 17:57] LABS: BE(vivo) 4.5 mmol/L (-2 to +3); HCO3 35.9 mmol/L (22.0-26.0); PO2 97.4 mmHg (80.0-100.0); pH 7.204 (7.360-7.450); sO2 95.5 % (92.0-98.0)
[2020-01-18 17:58] LABS: PCO2 93.1 mmHg (35.0-45.0)
--- NOTE | 2020-01-18 20:15 | NUR ---
Assumed patient care at 0715. Vital signs stable in am, wheezes auscultated in all lung jaffe, ABD soft and non-tender, BS x's 4, skin is clean, warm, dry and intact.Patient had a good morning, was calm and cooperative, talking without difficulty to this nurse. Early afternoon, patient began declining. Respirations were labored, she had a non-productive cough and was very fatigued. Blood Gases completed with return of Critical values. Dr Storm notified. Received and gave new medication orders. Patient now requiring the use of a Bi-Pap or to be Intubated due to Respiratory Distress. Patient refused to use the Bi-Pap at first (also refused to be Intubated). After education was provided per this nurse, Dr Storm and Dr Duran; patient agreed to use the Bi-Pap. If patient becomes non-compliant with this, Dr Duran would like to be notified. Dr Duran and Dr Storm spoke with son via telephone. Patient also educated per the need to change her Code Status due to her Health Issues and the decline associated with these diseases. Report given to on-coming RN.
[2020-01-18 20:19] LABS: CALCIUM 9.3 mg/dL (8.5-10.1); CREATININE 1.7 mg/dL (0.6-1.0); POTASSIUM 5.5 mmol/L (3.5-5.1)
[2020-01-18 21:18] LABS: BE(vivo) 4.2 mmol/L (-2 to +3); HCO3 34.1 mmol/L (22.0-26.0); PCO2 78.9 mmHg (35.0-45.0); PO2 81.8 mmHg (80.0-100.0); pH 7.253 (7.360-7.450); sO2 93.8 % (92.0-98.0)
--- NOTE | 2020-01-19 01:20 | NUR ---
PT ON BIPAP AT START OF SHIFT. SHE WAS CONFUSED AND SLIGHTLY AGITATED, THEN LATER DIFFICULT TO AROUSE. DR WHITEHEAD NOTIFIED OF CRITICAL ABGS X2 . ABGS SLIGHTLY IMPROVED. PT GRADULALLY BECAME MORE ALERT AND STOOD UP OOB WITHOUT HELP. INCONTINENT OF STOOL IN LARGE AMOUNTS AFTER KAYEXELATE GIVEN FOR CRITICAL POTASSIUM. REINSTRUCTED PT ON FALL PRECAUTIONS. BED ALARM ON. SIDERAILS UP. PT MORE ALERT NOW AND CALLS FOR BEDPAN. KEYS PLACED EARLIER DUE TO CHANGE IN LOC AND INCONTINENCE AND NEED FOR ACCURATE I AND O. MRSA AND URINE FOR LEGIONELLA SENT TO LAB. HELD 2100 ATENOLO DOSE DUE TO HR BRADYCARDIC. NOTIFIED DR HERNANDEZ OF K LEVEL. NO ORDERS GIVEN. HE WILL SEE PPT IN AM. PT RESTING QUIETLY PRESENTLY WITH BIPAP ON.
[2020-01-19 04:55] VITALS: BP 143/82
[2020-01-19 05:42] LABS: HEMATOCRIT 39.1 % (37.0-47.0); HEMOGLOBIN 12.8 gm/dL (12.0-15.0); MCH 31.7 pg (26.0-34.0); MCHC 32.7 g/dL (28.0-37.0); MCV 97.1 fL (80.0-100.0); RBC 4.03 mil/uL (4.20-5.00); RDW 15.4 % (10.5-14.5); WBC 12.3 thou/uL (4.0-11.0)
[2020-01-19 05:52] LABS: CALCIUM 9.4 mg/dL (8.5-10.1); CREATININE 1.7 mg/dL (0.6-1.0); POTASSIUM 4.9 mmol/L (3.5-5.1)
--- NOTE | 2020-01-19 07:12 | NUR ---
PT MORE ALERT THIS AM ABLR TO CONVERSE WITH STAFF. K DOWN TO 4.9 AFTER 3LG LIQUID STOOLS. VSS PRESENTLY WITH BIPAP ON . SEE VS.
[2020-01-19 08:13] VITALS: BP 135/92
[2020-01-19 10:51] VITALS: BP 129/67
--- NOTE | 2020-01-19 12:00 | NUR ---
PT WAS ON O2 FOR A FEW HOURS THEN PLACED BACK ON BIPAP...PLANS TO TX TO ICU LATER WHEN BED AVAILABLE RE NEED FOR NEG PRESSURE ROOM FOR BIPAP...
--- NOTE | 2020-01-19 15:44 | NUR ---
MINDY reviewed chart and spoke with nursing and attending physician. Pt is in Enhanced Isolation due to COVID-19. Pt is requiring bipap supoort. Pt is on IV abx/IV steroids and completing course of Remdesivir. MINDY notified by attending physician that pt's family would like pt transferred to [facility]. MINDY spoke with pt's son, Ko, via phone to discuss transfer. Family would prefer the [place] location, or [facility] as second option. Pt's family does not want pt transferred to [facility]. MINDY spoke with Zeny at the [facility] Transfer Center and provided clinical info and contact for attending physician. MINDY faxed face sheet and copy of pt's insurance cards to [facility] for Case Mgmt approval. MINDY received call back from Zeny stating that the [place] location will not be able to accept pt due to it being a lateral transfer. [facility] is currently full and not able to accept transfers today. Zeny recommended calling transfer center tomorrow morning to check status of bed availability. MINDY spoke with pt's son via phone to provide update. Pt's son is aware and agreeable with plan. MINDY updated attending physician. MINDY is following to assist as needed with discharge planning.
[2020-01-19 20:26] VITALS: BP 147/78
--- NOTE | 2020-01-19 22:20 | NUR ---
PT IS ALERT AND ORIENTED X3. FOLLOWS COMMANDS. PUPILSREAXCT SLUGGISHLY. BIPAP 40%. SAT 98-99% PRESENTLY. LUNG SOUNDS ARE DIMINISHED BILATERALLY. WAITING FOR TRANSFER TO ICU. DENIED PAIN. KEYS DRAINING MOD AMTS YELLOW- ORANGE URINE.
[2020-01-19 23:35] VITALS: BP 146/68
[2020-01-20] VITALS (40 sets, daily range): BP systolic 107–149; BP diastolic 45–98
--- NOTE | 2020-01-20 02:20 | NUR ---
PT ARRIVED ON THE UNIT AT 0145, ON BIPAP, PT AWAKE AND ORIENTED TO SELF AND PLACE, MILDLY CONFUSED AND UPSET ABOUT THE TRANSFER, PT ASKING IF HER SON HAS BEEN NOTIFIED THAT SHE TRANSFERED TO ICU, PREETHI MCCRAY STATED SHE ALREADY SPOKE TO THE SON AND UPDATED HIM. PT APPEARS STABLE ON THE BIPAP , FIO2 40 % , SATS >95 %, DENIES PAIN/ DISCOMFORT.
[2020-01-20 06:00] LABS: ABSOLUTE NEUTROPHILS 9.6 thou/uL (1.4-8.2); BASOPHILS 0.2 % (0.0-2.0); HEMATOCRIT 39.1 % (37.0-47.0); LYMPHOCYTES 4.3 % (24.0-44.0); MCH 31.8 pg (26.0-34.0); MCHC 33.2 g/dL (28.0-37.0); MCV 95.8 fL (80.0-100.0); MONOCYTES 7.2 % (1.0-8.0); PLATELET COUNT 379 thou/uL (150-400); POLYS 88.3 % (36.0-66.0); RBC 4.09 mil/uL (4.20-5.00); RDW 15.7 % (10.5-14.5); WBC 10.9 thou/uL (4.0-11.0)
[2020-01-20 06:29] LABS: INR 1.3; PROTIME 12.7 Seconds (9.3-11.4)
[2020-01-20 06:42] LABS: ALBUMIN 3.3 g/dL (3.4-5.0); ANION GAP 5 mmol/L (7-16); BUN 52 mg/dL (7-18); CALCIUM 9.1 mg/dL (8.5-10.1); CHLORIDE 102 mmol/L (98-107); CO2 34 mmol/L (21-32); CREATININE 1.2 mg/dL (0.6-1.0); GLUCOSE 161 mg/dL (74-106); PHOSPHORUS 3.7 mg/dL (2.5-4.9); POTASSIUM 4.5 mmol/L (3.5-5.1); SGOT 23 U/L (15-37); SGPT 59 U/L (30-65); SODIUM 141 mmol/L (136-145); TOTAL BILIRUBIN 0.7 mg/dL (0.2-1.0); TOTAL PROTEIN 6.6 g/dL (6.4-8.2)
[2020-01-20 08:25] LABS: URINE BILIRUBIN NEGATIVE (Negative); URINE BLOOD 1+ (Negative); URINE CLARITY CLEAR; URINE COLOR YELLOW; URINE GLUCOSE-RANDOM* NEGATIVE (Negative); URINE KETONES NEGATIVE (Negative); URINE LEUKOCYTES NEGATIVE (Negative); URINE NITRITE NEGATIVE (Negative); URINE PROTEIN (DIPSTICK) NEGATIVE (Negative)
[2020-01-20 08:29] LABS: URINE CREATININE-RANDOM* 70.5 mg/dL
[2020-01-20 09:02] LABS: SQUAMOUS 0-3 Few /LPF (0-3)
[2020-01-20 09:03] LABS: CASTS None Seen /LPF (None Seen); CRYSTALS None Seen /LPF (None Seen); URINE RBC 3-10 Few /HPF (0-2)
[2020-01-20 09:05] LABS: BACTERIA 1-9 Few /HPF (None Seen); URINE WBC 0-5 Rare /HPF (0-5)
--- NOTE | 2020-01-20 10:23 | NUR ---
emerald spoke with halley at [facility] transfer center [phone] " we will have to send it to the admin at each [facility] location since [facility] denied for lateral transfer. [facility] and [facility] are closed at this time, so will try other location south and off of [address]. will call you after we run insurance and have admin look at transfer referral. emerald called son josseline , " my mom just called my sister upset and now my sister is calling me upset. i would like to speak with dr snell not the hospitalist. needing to know is she ok or not. active listening during phone call and support. end of phone call he stated "thank you, for calling"/josseline. emerald spoke with charge nurse for icu to pass on information to bedside nurse and dr snell.
--- NOTE | 2020-01-20 20:12 | NUR ---
ASSESSMENT DOCUMENTED. PT AFIB ON THE MONITOR. RATES 130'S. CARDIOLOGY NOTIFIED. DILT GTT ORDERED. SPOKE WITH PT DPOA/SON, CONNOR, APPROX 0830. UPDATED DPOA OF PT CONDITION/POC. PT RESTLESS IN BED WITH BIPAP ON. PT STATES "SOMETHING IS WRONG, YOU GUYS ARE GOING TO KILL ME, I DONT KNOW WHAT IS GOING ON." PT IRRITATED, RESTLESS. PT CONTINUED TO BECOME UNCOOPERATIVE. DR. GREEN NOTIFIED. PRECEDEX/PRN ATIVAN ORDERS GIVEN VERBALLY BY DR. GREEN. PT SEDATED/TOLERATING BIPAP/AND RESTING COMFORTABLY. NURSE SPOKE TO CONNOR/UPDATE PT CONDITION. SPOKE WITH DR. MCCONNELL APPROX 1000. JAYESH TO SPEAK WITH PT FAMILY R/T PT CONDITION/POC. PRECEDEX RATE 0.7 AT END OF SHIFT. DILT GTT AT 5. AFIB ON THE MONITOR. RATES 80'S. VSS. PT RESTING IN BED WITH CALL LIGHT IN REACH. PT ON BIPAP. TOLERATING WELL. RESTING COMFORTABLY WILL CONTINUE TO MONITOR.
--- NOTE | 2020-01-20 22:54 | NUR ---
VAT CONSULTED FOR A CL FOR THIS PT. A 5FRTL PLACED RT IJ. PLEASE SEE NI FOR DETAILS
[2020-01-21] VITALS (23 sets, daily range): BP systolic 111–147; BP diastolic 70–95
[2020-01-21 06:09] LABS: HEMATOCRIT 41.6 % (37.0-47.0); HEMOGLOBIN 13.5 gm/dL (12.0-15.0); MCHC 32.4 g/dL (28.0-37.0); MCV 95.7 fL (80.0-100.0); RBC 4.35 mil/uL (4.20-5.00); RDW 15.2 % (10.5-14.5); WBC 7.1 thou/uL (4.0-11.0)
[2020-01-21 06:42] LABS: ALBUMIN 3.1 g/dL (3.4-5.0); CALCIUM 8.6 mg/dL (8.5-10.1); CREATININE 0.9 mg/dL (0.6-1.0); PHOSPHORUS 3.7 mg/dL (2.5-4.9); POTASSIUM 5.2 mmol/L (3.5-5.1)
--- NOTE | 2020-01-21 09:51 | NUR ---
SPOKE WITH PATIENT'S SON CONNOR MARTÍNEZ, UPDATED HIM AND ANSWERED QUESTIONS.
[2020-01-21 11:27] LABS: BE(vivo) 9.3 mmol/L (-2 to +3); HCO3 37.9 mmol/L (22.0-26.0); PO2 86.4 mmHg (80.0-100.0); pH 7.353 (7.360-7.450); sO2 95.8 % (92.0-98.0)
[2020-01-21 11:29] LABS: PCO2 69.8 mmHg (35.0-45.0)
--- NOTE | 2020-01-21 13:16 | NUR ---
cm sent message to hospitalist if had spoken to juanjose manjarrez and if family still wanting to transfer to a [facility] " dr snell will be following and family was ok with dr snell said"/hospitalist. cm spoke with juanjose manjarrez via phone call " not really wanting to transfer if everything cont to go this way. just want to speak with my mom if that can happen, asked for few days . understand it is busy and nurse yesterday called to say she was sorry that she had forgotten to do that"/josseline. cm spoke with bedside nurse and stated pt cell is and have no sewer head. cm ask that she reach out to juanjose manjarrez to let him know, maybe family could drop one off.
--- NOTE | 2020-01-21 15:39 | NUR ---
PATIENT AND SON CONVERSED ON PHONE
--- NOTE | 2020-01-21 20:01 | NUR ---
PATIENT REMAINS STABLE ON BIPAP, O2 SAT IN THE UPPER 90'S. URINE OUTPUT ADEQUATE PER KEYS. COUGHING ON CLEAR WATER THIS EVENING. MONITOR SHOWING AFIB WITH VENT RESP LESS THAN 120, CARDIZEM AT 5 MG/HR. REMAINS ON PRECEDEX DRIP. ATIVAN GIVEN ONCE FOR ANXIETY.
[2020-01-22] VITALS (35 sets, daily range): BP systolic 126–170; BP diastolic 60–101
[2020-01-22 06:14] LABS: HEMATOCRIT 43.2 % (37.0-47.0); HEMOGLOBIN 14.3 gm/dL (12.0-15.0); MCH 31.5 pg (26.0-34.0); MCHC 33.1 g/dL (28.0-37.0); MCV 95.2 fL (80.0-100.0); RBC 4.53 mil/uL (4.20-5.00); RDW 14.9 % (10.5-14.5); WBC 8.1 thou/uL (4.0-11.0)
[2020-01-22 06:34] LABS: ANION GAP < 0 mmol/L (7-16); BUN 39 mg/dL (7-18); CALCIUM 9.4 mg/dL (8.5-10.1); CHLORIDE 102 mmol/L (98-107); CO2 43 mmol/L (21-32); CREATININE 0.8 mg/dL (0.6-1.0); GLUCOSE 187 mg/dL (74-106); MAGNESIUM 2.1 mg/dL (1.8-2.4); SODIUM 144 mmol/L (136-145)
--- NOTE | 2020-01-22 18:52 | NUR ---
ASSUMED CARE AT SHIFT CHANGE. PT ANXIOUS AND RESTLESS MOST OF THE DAY, STATES WANTS TO GO HOME. ON PRECEDEX GTT, CARDIZEM GTT. HTN TODAY, GIVEN ONE TIME DOSE OF LOPRESSOR PER CARDIOLOGY THIS AM, NO OTHER ORDERS RECEIEVED. PT ON BIPAP AND PULLS AT MASK OCCASSIONALLY. RESTING AT THIS TIME. FIO2 45%, ASSESSMENTS PER CHART.
[2020-01-23] VITALS (37 sets, daily range): BP systolic 124–169; BP diastolic 66–105
[2020-01-23 05:50] LABS: CALCIUM 9.6 mg/dL (8.5-10.1); CREATININE 0.8 mg/dL (0.6-1.0); POTASSIUM 4.7 mmol/L (3.5-5.1)
--- NOTE | 2020-01-23 10:25 | NUR ---
Nutrition: Pt with inadequate intake over admit. Now NPO x 3 days requiring Bipap in ICU. REC TPN initation: 7% aa, 12.5% dextrose, 2.9% lipids at 50 mL/hr goal rate. Caution refeeding syndrome risk.
--- NOTE | 2020-01-23 13:41 | NUR ---
chart review. pt remains to need bipap and o2 support. cont on iv gtts. covid +. no anticipated dc over weekend. will cont following as needed for dc needs. spoke with juanjose manjarrez but he was blessed that nurse that day who called let them speak together the other day. mom pills coming in and needed to picker / packer purse so i can pay her pills. if someone could call me back on that. dr gamboa has been good to speak with and we are all ok know. i have been letting mom rest since she gets so short of air when not using that bipap. the nurse that let me speak with mom also cared for my dad there before he passed and she is a excleant nurse"/son josseline . cm passed on information to bedside nurse.
[2020-01-23 17:30] LABS: BE(vivo) 9.4 mmol/L (-2 to +3); HCO3 34.1 mmol/L (22.0-26.0); PCO2 45.5 mmHg (35.0-45.0); pH 7.492 (7.360-7.450); sO2 90.1 % (92.0-98.0)
[2020-01-23 17:34] LABS: PO2 53.7 mmHg (80.0-100.0)
--- NOTE | 2020-01-23 19:19 | NUR ---
PT PULLED RIJ OUT. RESTRAINTS NOW ON PT. CVAD STILL NEEDED. RIJ WAS WIDELY PATENT WITH USG. 6FR 25CM JACC INSERTED TO 6CM EXTERNAL, 1ST CXR APPEARED TOO DEEP WITHDREW FOR TOTAL OF 8CM. 2ND CXR ORDERED. PT TOLERATED WELL.
--- NOTE | 2020-01-23 19:52 | NUR ---
CXR CONFIRMED RIJ AT [facility]. RELEASED FOR IMMEDIATE USE PER PROTOCOL TO KEARA MCCRAY
[2020-01-23 20:20] LABS: BE(vivo) 9.5 mmol/L (-2 to +3); HCO3 34.5 mmol/L (22.0-26.0); PCO2 47.5 mmHg (35.0-45.0); PO2 67.8 mmHg (80.0-100.0); pH 7.479 (7.360-7.450); sO2 94.5 % (92.0-98.0)
--- NOTE | 2020-01-23 21:05 | NUR ---
PT STARTED SHIFT ON BIPAP AT 40%FIO2. PT'S SPO2 REMAINED >THAN 95%. IN AFTERNOON RT SWITCHED PT FROM BIPAP TO 6L HF NC. BLOOD GAS WAS CHECKED IN 1 HOUR AND PO2 WAS CL. PHYSICIAN WAS NOTIFIED OF CRITICAL RESULTS. RT THEN INCREASED OXYGEN FROM 6L HF NC TO 8L HF NC. PT BEGAN BECOMMING INCREASINGLY AGITATED. PHYSICIAN WAS MADE AWARE AND WROTE MED ORDER FOR ZYPREXA SEE MAR. WHILE RN WAS IN ANOTHER PT'S ROOM PT STARTED YELLING AND PULLING OFF O2, PEDIATRIC ASSISTANT LEADS AND PULLED OUT CENTRAL LINE. RN NOTICED AND RAN INTO PT'S ROOM. PT WAS CLEANED UP FROM BLOOD THAT HAD DRIPPED DOWN NECK, NEW GOWN, NEW LINENS GIVEN APPLIED. PHYSICIAN CALLED NEW ORDER FOR NEW CENTRAL LINE GIVEN. PT'S DPOA CALLED AND GAVE TELEPHONE CONSENT TO 2 RN'S. NEW LINE PLACED BY IV TEAM AND PLACEMENT CONFIRMED BY CHEST XRAY. PT'S IV MEDICATIONS RESTARTED. NEW ORDER FOR NON-VIOLENT SOFT WRIST RESTRAINTS OBTAINED BY PHYSICIAN AND DPOA INFORMED VIA TELEPHONE. RESERVATION MANAGER 2ND TIER REVIEWED ORDER AND PLACEMENT. NEW ORDER GIVEN TO PLACE PT BACK ON BIPAP.
[2020-01-24] VITALS (35 sets, daily range): BP systolic 108–157; BP diastolic 25–92
--- NOTE | 2020-01-24 06:00 | NUR ---
Pt. rested quietly at short intervals during the night when checked on during frequent rounds. She offers no c/o pain. Pt. has been alert and oriented times three. Pt. has been afib/rvr on the monitor and heart rate has increased to 130's to 160's. Cardiology was called and notified. New order for didoxin one time with a repeat dose (cpoe). Bed alarm is on.
[2020-01-24 08:21] LABS: CALCIUM 9.5 mg/dL (8.5-10.1); CREATININE 0.8 mg/dL (0.6-1.0); POTASSIUM 3.5 mmol/L (3.5-5.1)
--- NOTE | 2020-01-24 18:29 | NUR ---
@ 9263 PT'S SON CONNOR MARTÍNEZ @ PUBLIC SAFETY OFFICE REQUESTING TO TAKE PT'S BELONGING HOME, THIS WAS DISCUSSED WITH THE PSYCHOLOGY CLINICIAN, THIS IS OK. PT BELONGINGS WERE DOUBLE BAGGED AND TAKEN TO HIM.
--- NOTE | 2020-01-24 19:35 | NUR ---
ASSUMED PT CARE AT 0700. ASSESSMENTS AND VSS AND DOCUMENTED.PT ENCOUNTERED VERY ANXIOUS DR PRAJAPATI AND DR. GREEN AWARE. PT ON BIPAP @ 40%FIO2 SSATO2 IN THE 90S. DR. GREEN AND ALO HERE DURING SHIFT. ORDERS RECIEVED AND EXCECUTED. DR. NEELY HERE DURINNG SHIFT TO ROUND, RN RN EXPRESSES CONSERNS ON DIGOXIN ORDER. RN NOTIFIED TO HOLD MED
--- NOTE | 2020-01-24 21:33 | NUR ---
NOTICEABLE HEMATURIA IN THE KEYS, THAT STARTED JUST BEFORE SHIFT CHANGE STATED BY DAY SHIFT RN. NOTIFIED [employer] INTEGRATION ENGINEER BHANU, HELD TONIGHT'S DOSE OF LOVENOX PER ORDERS. WILL CONTINUE TO MONITOR.
[2020-01-25] VITALS (39 sets, daily range): BP systolic 120–197; BP diastolic 67–109
[2020-01-25 06:19] LABS: HEMATOCRIT 43.8 % (37.0-47.0); HEMOGLOBIN 14.1 gm/dL (12.0-15.0); MCH 30.7 pg (26.0-34.0); MCHC 32.1 g/dL (28.0-37.0); MCV 95.4 fL (80.0-100.0); RBC 4.59 mil/uL (4.20-5.00); RDW 15.3 % (10.5-14.5); WBC 9.5 thou/uL (4.0-11.0)
[2020-01-25 06:41] LABS: CALCIUM 8.6 mg/dL (8.5-10.1); CREATININE 0.8 mg/dL (0.6-1.0); POTASSIUM 3.8 mmol/L (3.5-5.1)
--- NOTE | 2020-01-25 18:37 | NUR ---
ASSUMED CARE @ 0700 01/25/20, PT ASSESSMENTS AND VSS COMPLETE PER ICU PROTOCOL. PT ENCOUNTERED ON BIPAP 40%, RT PLACES PT ON 5L NC, PT MAINTAINING SATS IN THE 90'S BUT PT CONTINUES TO GET MORE AND MORE CONFUSED, RESTLESS AND AGITATED, PRECEDEX INCREASED, PT PLACED BACK ON BIPAP ON THE SAME SETTINGS, DR GREEN INFORMED OF THIS INCIDENT. DR GREEN ORDERS ABG, RT UNABLE TO GET BECAUSE PT BECOMES VERY COMBATIVE. @ 0981 SON CONNOR CALLS FOR AN UPDATE, RN UNABLE TO PICK CALL, CALL RETURNED @ 1025, CODE VERIFIED AND PT'S SON UPDATED. SON REQUESTS TO VISIT MOM, RN EXPLAINS THE VISITING POLICY BUT RN SUGGESTS THAT WE CAN EMPLOY THE USE OF FACETIME, HE TALKS ABOUT DOING THIS TOMMORROW, I WILL PASS ON TO NURSING STAFF. WILL CONTINUE TO MONITOR.
[2020-01-26] VITALS (38 sets, daily range): BP systolic 109–160; BP diastolic 48–101
--- NOTE | 2020-01-26 00:49 | NUR ---
Pt occassionally wake up and becomes restless, starts yelling out ,talking loudly to herself. Pt also paranoid stating fears that the nursing staff are going to harm her, while being combative trying to kick and grab at staff. Attempts to re orient or redirect have been futile. Pt is on maximum dose of precedex, prn seroquel given x1, restraints maintained. Will monitor.
[2020-01-26 06:38] LABS: HEMATOCRIT 43.4 % (37.0-47.0); HEMOGLOBIN 14.6 gm/dL (12.0-15.0); MCH 31.6 pg (26.0-34.0); MCHC 33.7 g/dL (28.0-37.0); MCV 93.9 fL (80.0-100.0); RBC 4.62 mil/uL (4.20-5.00); RDW 15.1 % (10.5-14.5); WBC 11.4 thou/uL (4.0-11.0)
[2020-01-26 06:49] LABS: CALCIUM 8.7 mg/dL (8.5-10.1); CREATININE 0.7 mg/dL (0.6-1.0); POTASSIUM 4.1 mmol/L (3.5-5.1)
[2020-01-26 06:51] LABS: ALBUMIN 2.8 g/dL (3.4-5.0)
--- NOTE | 2020-01-26 09:47 | NUR ---
Nutrition: TPN started with standard formula. BG and Triglycerides both elevated. Continue to recommend individualized TPN to best meet needs. REC 7% aa, 12.5% dextrose at 50 mL/hr, 250 mL 20% lipids MWF.
--- NOTE | 2020-01-26 11:46 | NUR ---
chart review. pt cont require bipap and 7+ L o2. has had some paranoid, yelling out and combativeness over weekend. possible going to start tpn. cm spoke with juanjose manjarrez via phone call. no concerns to pass on, "communication has been good and thank you for just reaching out. just the one thing. being able to see family even just one person from distance in ppe which i would buy, would help my mom heal. sure not the 1st time heard that."/juanjose manjarrez. cont education on safety for pt and hospital staff and outside visitor.
--- NOTE | 2020-01-26 19:55 | NUR ---
ASSUMED CARE AT 0700. PATIENT WAS COMBATIVE AND AGITATED THROUGHOUT THE MORNING. PRECEDEX TITRATED DOWN THROUGHOUT THE DAY. PATIENT WAS MORE CALM AND COOPERATIVE AFTER NOON. PATIENT'S SON WAS UNABLE TO BE CONTACTED. CARDIZEM RUNNING @ 5 THROUGHOUT THE DAY. UOP WAS 725. PATIENT TAKEN OFF BIPAP AT 0900 AND PLACED ON HIGH FLOW NASAL CANNULA @ 7 L/MIN FOR THE REST OF THE DAY AND IT WAS TOLERATED WELL BY THE PATIENT. SKIN INTACT. PATIENT PROGRESSING TOWARDS PLAN OF CARE. PATIENT ABLE TO SWALLOW FLUIDS AND MEDICATIONS. AFEBRILE. NO BM.
[2020-01-27] VITALS (32 sets, daily range): BP systolic 136–174; BP diastolic 51–86
--- NOTE | 2020-01-27 01:22 | NUR ---
PT IS ORIENTED TO SELF, PLACE, SITUATION BUT IS PLEASANTLY CONFUSED AND COOPERATIVE. OXYGEN BY NC IS DOWN TO 5L, SATS >95% , PT STATES SHE WEARS 3L AT HOME PRN.CARDIZEM GTT AT 10MG/HR , AFIB ON THE MONITOR. PT HAD X2 LARGE BM'S.
[2020-01-27 05:00] LABS: HEMATOCRIT 44.5 % (37.0-47.0); HEMOGLOBIN 14.5 gm/dL (12.0-15.0); MCH 31.1 pg (26.0-34.0); MCHC 32.6 g/dL (28.0-37.0); MCV 95.4 fL (80.0-100.0); RBC 4.67 mil/uL (4.20-5.00); RDW 15.4 % (10.5-14.5); WBC 16.7 thou/uL (4.0-11.0)
[2020-01-27 05:15] LABS: PHOSPHORUS 3.2 mg/dL (2.5-4.9)
[2020-01-27 05:16] LABS: ALBUMIN 2.9 g/dL (3.4-5.0); CALCIUM 8.6 mg/dL (8.5-10.1); CREATININE 0.8 mg/dL (0.6-1.0); POTASSIUM 3.8 mmol/L (3.5-5.1); TOTAL BILIRUBIN 1.2 mg/dL (0.2-1.0); TOTAL PROTEIN 5.5 g/dL (6.4-8.2)
--- NOTE | 2020-01-27 19:30 | NUR ---
Report received from ICU (day shift nurse) Alexandra, room still not clean at this time. Report given to shift foreman nurse Jaclyn- to call ICU once room is ready.
[2020-01-28 03:10] VITALS: BP 151/90
[2020-01-28 05:40] LABS: HEMATOCRIT 45.6 % (37.0-47.0); HEMOGLOBIN 14.4 gm/dL (12.0-15.0); MCH 30.6 pg (26.0-34.0); MCHC 31.7 g/dL (28.0-37.0); MCV 96.6 fL (80.0-100.0); RBC 4.72 mil/uL (4.20-5.00); RDW 15.8 % (10.5-14.5); WBC 22.3 thou/uL (4.0-11.0)
[2020-01-28 05:52] LABS: CALCIUM 9.4 mg/dL (8.5-10.1); CREATININE 0.9 mg/dL (0.6-1.0); MAGNESIUM 2.4 mg/dL (1.8-2.4); PHOSPHORUS 3.5 mg/dL (2.5-4.9)
[2020-01-28 07:40] VITALS: BP 168/84
[2020-01-28 10:15] LABS: URINE BILIRUBIN NEGATIVE (Negative); URINE BLOOD 3+ (Negative); URINE CLARITY CLEAR; URINE COLOR YELLOW; URINE GLUCOSE-RANDOM* NEGATIVE (Negative); URINE KETONES NEGATIVE (Negative); URINE LEUKOCYTES-REFLEX NEGATIVE (Negative); URINE NITRITE-REFLEX NEGATIVE (Negative); URINE PROTEIN (DIPSTICK) NEGATIVE (Negative); URINE UROBILINOGEN 0.2 E.U./dl (0.2-1.0)
[2020-01-28 11:28] LABS: CASTS None Seen /LPF (None Seen); MUCUS 0-3 Light strn/LPF (None Seen); SQUAMOUS 0-3 Few /LPF (0-3); URINE WBC-REFLEX 0-5 Rare /HPF (0-5)
[2020-01-28 11:29] LABS: BACTERIA-REFLEX None Seen /HPF (None Seen); CRYSTALS None Seen /LPF (None Seen); URINE RBC 3-10 Few /HPF (0-2)
--- NOTE | 2020-01-28 13:32 | NUR ---
PT CARE ASSUMED AT 0700, PT IS ALERT AND ORIENTED X3. PT IS CONFUSE AND FORGETFUL AT TIMES. PT ORIENTED AND REDIRECTED NEEDED. PT DENIES CHEST PAIN. PT STATED FEELING NAUSEOUS, HAD A LITTLE EPISODE OF EMESIS, DR. ALO COLLADO AND ANTHONY GIVEN PER ORDER. PT HAS A KEYS, PATENT AND INTACT. PT DENIES ANY PAIN. TPN RUNNING 50ML/HR. CALL LIGHT AND TABLE WITHIN REACH. BED AT LOWEST LEVEL WITH ALARM ON. WILL CONTINUE TO MONITOR.
--- NOTE | 2020-01-28 14:31 | NUR ---
SW reviewed chart and spoke with nursing and attending physician. Pt is in Enhanced Isolation due to COVID-19. Pt transferred to 3W from ICU yesterday. Pt is afebrile and on 5L of O2. Pt is on IV abx, IV steroids and IV lasix. Therapy ordered to evaluate pt for discharge needs. SW is following to assist as needed with discharge planning.
[2020-01-28 16:12] VITALS: BP 106/80
[2020-01-28 19:40] VITALS: BP 132/94
[2020-01-29] VITALS (78 sets, daily range): BP systolic 67–148; BP diastolic 25–102
[2020-01-29 00:49] LABS: BE(vivo) 1.2 mmol/L (-2 to +3); HCO3 36.1 mmol/L (22.0-26.0)
[2020-01-29 00:50] LABS: pH 7.075 (7.360-7.450)
--- NOTE | 2020-01-29 01:35 | NUR ---
PT WITH DECREASED LOC AND DECREASED O2 SAT. PRE SALES ARCHITECT CALLED. SEE PRE SALES ARCHITECT FLOWSHEET.
[2020-01-29 01:46] LABS: BE(vivo) 0.4 mmol/L (-2 to +3); HCO3 35.6 mmol/L (22.0-26.0); sO2 91.1 % (92.0-98.0)
[2020-01-29 01:47] LABS: PCO2 132.6 mmHg (35.0-45.0); pH 7.047 (7.360-7.450)
--- NOTE | 2020-01-29 02:11 | NUR ---
DURING 2400 ROUNDS, PT OXYGEN SAT WAS LOW, AND UNRESPONSIVE. PT PUT ON BIPAP AND RAPID RESPONSE CALLED. ABG'S DRAWN, AND TRANSFERRED TO ICU.
--- NOTE | 2020-01-29 03:18 | NUR ---
PT RAPID RESPONSE FROM [facility]. PT ON 100% FIO2 ON BIPAP, UNRESPONSIVE AND TACHYCARDIC ON ARRIVAL TO ICU. PULMONOLOGY DR. GREEN NOTIFIED ON PT ARRIVAL TO ICU. FAMILY WAS CONTACTED BY THIS RN X4. THIS RN COULD NOT GET HOLD OF THE FAMILY. DR. GREEN WANTED PT TO STAY IN BIPAP. PT NOT VENTILATING WELL. REPEAT ABG EVEN WORSE THAN BEFORE. NOTIFIED AGAIN AND RECEIVED ORDER FOR INTUBATION. PT INTUBATED BY FROM ER AT 0208 AM. PT WAS GIVEN PROPOFOL BOLUS FOR SEDATION FOR INTUBATION. ETT TUBE VERIFIED BY DR. CISNEROS.
[2020-01-29 04:11] LABS: BE(vivo) 4.4 mmol/L (-2 to +3); HCO3 29.7 mmol/L (22.0-26.0); PO2 134.2 mmHg (80.0-100.0); pH 7.419 (7.360-7.450); sO2 98.7 % (92.0-98.0)
[2020-01-29 06:26] LABS: CALCIUM 8.9 mg/dL (8.5-10.1); CREATININE 1.3 mg/dL (0.6-1.0); POTASSIUM 4.9 mmol/L (3.5-5.1)
[2020-01-29 06:29] LABS: MAGNESIUM 2.4 mg/dL (1.8-2.4); PHOSPHORUS 3.7 mg/dL (2.5-4.9)
--- NOTE | 2020-01-29 07:17 | NUR ---
PATIENT WITH CULINARY INTERNSHIP, DECLINE IN RESPIRATORY STATUS, A-FIB, TRANSFER TO ICU, INTUBATED. WILL NEED NEW ORDERS WHEN PATIENT IS APPROPRIATE FOR OT INTERVENTIONS.
[2020-01-30] VITALS (45 sets, daily range): BP systolic 79–124; BP diastolic 37–71
--- NOTE | 2020-01-30 00:44 | NUR ---
SEDATION VACATION FOR 30 MINUTES. PT OPENS EYES TO STERNAL RUB AND VERBAL STIMULI, FOLLOWS PARTIAL COMMANDS; WILL SQUEEZ RIGHT HAND BUT NOT LEFT HAND OR WIGGLE TOES. FENTANLY TIRATED DOWN TO 80 FROM 100 MCG AND VERSED TO 5 FROM 6 MCG. O2 TITRATED TO 50% WITH RATE OF 18 AROUND 0000 BY RT. PT TOLORATING TIRATION, SATS 98%. PT IS STABLE NOW WILL CONTINUE TO MONITOR
[2020-01-30 05:32] LABS: HEMATOCRIT 38.6 % (37.0-47.0); HEMOGLOBIN 12.5 gm/dL (12.0-15.0); MCH 30.5 pg (26.0-34.0); MCHC 32.3 g/dL (28.0-37.0); MCV 94.4 fL (80.0-100.0); RBC 4.09 mil/uL (4.20-5.00); RDW 15.2 % (10.5-14.5); WBC 14.4 thou/uL (4.0-11.0)
[2020-01-30 05:48] LABS: CALCIUM 8.6 mg/dL (8.5-10.1); CREATININE 1.4 mg/dL (0.6-1.0); POTASSIUM 4.2 mmol/L (3.5-5.1)
--- NOTE | 2020-01-30 10:32 | NUR ---
Nutrition: Pt intubated and off propofol. REC start Vital HP to reach 50 mL/hr
--- NOTE | 2020-01-30 13:58 | NUR ---
cm called juanjose manjarrez [phone] , no answer. requested call back if he needed assistance or had question for cm. coivd +, shalonda remains intubated, possible starting TPN for nutritional support. FIO2 50% Peep 8. no anticpated dc over the weekend. will cont following as needed for dc needs.
--- NOTE | 2020-01-30 19:07 | NUR ---
PT SEDATED, VITALS STABLE, SPOKE WITH SON CONNOR-HE REQUEST DR GREEN TO CALL HIM 01/30 AND HE ALSO WANTS ANOTHER COVID SWAB DONE. MESSAGE GIVEN TO PROVINCE ARCHIVIST. PT STILL HAS MODERATE AMOUNT OF VAGINAL BLEEDING-REPORTED TO DR GREEN AND ALO.
[2020-01-31] VITALS (60 sets, daily range): BP systolic 90–138; BP diastolic 38–86
[2020-01-31 06:05] LABS: HEMATOCRIT 36.6 % (37.0-47.0); HEMOGLOBIN 11.9 gm/dL (12.0-15.0); MCH 30.9 pg (26.0-34.0); MCHC 32.5 g/dL (28.0-37.0); MCV 94.9 fL (80.0-100.0); RBC 3.86 mil/uL (4.20-5.00); RDW 15.8 % (10.5-14.5); WBC 16.2 thou/uL (4.0-11.0)
[2020-01-31 06:12] LABS: CALCIUM 8.3 mg/dL (8.5-10.1); CREATININE 1.4 mg/dL (0.6-1.0); POTASSIUM 3.5 mmol/L (3.5-5.1)
--- NOTE | 2020-01-31 07:11 | NUR ---
AFIB ON MONITOR. HR IN 110s-140s. PRN METOPROLOL GIVEN ONE TIME. AMIO GTT AT 1. MAINTAINED SATS WITH FIO2 50%. AFEBRILE. TOTAL URINE OUTPUT 450 CC. NS @ 125/HR CONTINUED. COMPLETE BED BATH AND LINEN CHANGE THIS SHIFT.
--- NOTE | 2020-01-31 10:05 | NUR ---
ASSUMED CARE AT 0700, ASSESSMENT AND VITAL SIGNS COMPLETED PER ICU PROTOCOL. DR. NELSON LAMAS, PLAN OF CARE DISCUSSED. KEARA MAYES, CARDIOLOGY, ROUNDED THIS AM, PLAN OF CARE DISCUSSED, CONTINUE AMIODARONE GTT. RN WILL CONTINUE TO MONITOR.
[2020-02-01] VITALS (20 sets, daily range): BP systolic 89–123; BP diastolic 50–63
[2020-02-01 06:22] LABS: HEMATOCRIT 37.2 % (37.0-47.0); HEMOGLOBIN 12.1 gm/dL (12.0-15.0); MCH 31.2 pg (26.0-34.0); MCHC 32.4 g/dL (28.0-37.0); MCV 96.2 fL (80.0-100.0); PLATELET COUNT 156 thou/uL (150-400); RBC 3.87 mil/uL (4.20-5.00); RDW 15.5 % (10.5-14.5); WBC 16.5 thou/uL (4.0-11.0)
[2020-02-01 06:41] LABS: APTT 29.6 Seconds (24.5-32.8); INR 1.2; PROTIME 11.9 Seconds (9.3-11.4)
[2020-02-01 06:47] LABS: ALBUMIN 2.7 g/dL (3.4-5.0); CALCIUM 8.4 mg/dL (8.5-10.1); CREATININE 1.4 mg/dL (0.6-1.0); MAGNESIUM 2.1 mg/dL (1.8-2.4); POTASSIUM 3.7 mmol/L (3.5-5.1); TOTAL BILIRUBIN 0.8 mg/dL (0.2-1.0); TOTAL PROTEIN 5.3 g/dL (6.4-8.2)
--- NOTE | 2020-02-01 07:30 | NUR ---
SEE Trupanion FOR ASSESSMENT. AWAKENS EASILY ON SEDATION OF VERSED AND FENTANYL. AFIB ON MONITOR WITH RATE 120-150. METOPROPOL GIVEN ONCE. MINIMALL ADEQUATE UO-ERICH CLOUDY, TF INFUSING-TENZIN WELL. 02SAT 98 ON CURRENT VENT SETTING. MINIMAL ASSIST OF VENT CONT PLAN OC ARE
[2020-02-01 09:08] LABS: ABSOLUTE NEUTROPHILS 15.7 thou/uL (1.4-8.2); ANISOCYTOSIS 1+; METAMYELOCYTES 2 %
--- NOTE | 2020-02-01 12:26 | NUR ---
ASSUMED CARE AT 0700, ASSESSMENT AND VITAL SIGNS COMPLETED PER ICU PROTOCOL. DR. DAMON ROUNDED THIS AM, PLAN OF CARE DISCUSSED. DR. CANTRELL ROUNDED THIS AM, HR AND A FIB DISCUSSED, IN ADDITION TO PLAN OF CARE. RN WILL CONTINUE TO MONITOR.
[2020-02-02] VITALS (18 sets, daily range): BP systolic 98–125; BP diastolic 48–79
[2020-02-02 07:04] LABS: HEMATOCRIT 34.7 % (37.0-47.0); HEMOGLOBIN 11.4 gm/dL (12.0-15.0); MCH 31.1 pg (26.0-34.0); MCHC 32.7 g/dL (28.0-37.0); MCV 95.1 fL (80.0-100.0); RBC 3.65 mil/uL (4.20-5.00); RDW 15.9 % (10.5-14.5); WBC 18.1 thou/uL (4.0-11.0)
[2020-02-02 07:54] LABS: CALCIUM 8.5 mg/dL (8.5-10.1); CREATININE 1.4 mg/dL (0.6-1.0); POTASSIUM 3.7 mmol/L (3.5-5.1)
[2020-02-02 09:46] LABS: BE(vivo) -3.2 mmol/L (-2 to +3); HCO3 23.5 mmol/L (22.0-26.0); PCO2 48.8 mmHg (35.0-45.0); PO2 96.5 mmHg (80.0-100.0); sO2 96.6 % (92.0-98.0)
--- NOTE | 2020-02-02 11:46 | NUR ---
cm returned voice message from pt son josseline [phone] " just would like to know when or if going to retest mom for covid, if she is negative i could visit and that would be better for her"/josseline son. cm spoke with son via phone call, let him know would pass on information to icu records section supervisor and pulmonary MD, " yes i would like to speak with the pulmonary dr, oh and nurse lilliam and david had my dad when he was in icu and now have my mom and they are wonderful "/josseline.
--- NOTE | 2020-02-02 12:09 | NUR ---
PATIENT ON THE VENT, SEDATED. VITALS STABLE, AFEBRILE. ON AMIO GTT FOR HR CONTROL. ASSESSMENT DOCUMENTED. OGT WITH TF AND CHANGED FROM JEVITY TO VITAL HP PER PLAN MANAGER RECOMMENDATION. SON CALLED WHEN I WAS BUSY IN THE ROOM. I CALLED HIM BACK AND UPDATED AND ANSWERED QNS. EXPRESSED THAT HE WOULD LIKE HIS MOTHER RETESTED FOR COVID 19 SO HE CAN COME VISIT IF SHE TESTS NEGATIVE. WILL CONTINUE WITH POC
[2020-02-03] VITALS (42 sets, daily range): BP systolic 96–139; BP diastolic 45–91
[2020-02-03 03:46] LABS: BE(vivo) -5.2 mmol/L (-2 to +3); HCO3 21.7 mmol/L (22.0-26.0); PCO2 47.8 mmHg (35.0-45.0); PO2 83.9 mmHg (80.0-100.0); sO2 94.9 % (92.0-98.0)
[2020-02-03 03:47] LABS: pH 7.275 (7.360-7.450)
--- NOTE | 2020-02-03 04:51 | NUR ---
NO SIGNIFICANT EVENTS OVER NIGHT. PT REMAINS SEDATED WITH FENTANYL AND VERSED FOR VENT MANAGEMENT. PT TOLERATED SEDATION VACATION WELL, WITHOUT ANY SIGNIFICANT CHANGES IN VITAL SIGNS OR BEHAVIOR. SHE IS ABLE TO FOLLOW SIMPLE COMMANDS AND OPEN HER EYES DURING SEDATION VACATION. TF VIA OGT. TOLERATING WELL WITH RESIDUALS LESS THAN 50ML DURING THE NIGHT. SLOWLY INCREASING TF RATE TO GOAL. AMIO GTT INFUSING PER CARDIOLOGY FOR HR CONTROL. PT REMAINS IN AFIB ON TELE. FALL PRECAUTIONS IN PLACE. PROGRESSING SLOWLY TOWARD POC GOALS.
[2020-02-03 05:43] LABS: HEMOGLOBIN 11.4 gm/dL (12.0-15.0); MCH 30.4 pg (26.0-34.0); MCHC 31.6 g/dL (28.0-37.0); MCV 96.2 fL (80.0-100.0); PLATELET COUNT 177 thou/uL (150-400); RBC 3.75 mil/uL (4.20-5.00); RDW 15.8 % (10.5-14.5); WBC 19.4 thou/uL (4.0-11.0)
[2020-02-03 05:48] LABS: ALBUMIN 2.6 g/dL (3.4-5.0); CALCIUM 8.8 mg/dL (8.5-10.1); CREATININE 1.6 mg/dL (0.6-1.0); POTASSIUM 3.8 mmol/L (3.5-5.1); TOTAL BILIRUBIN 0.7 mg/dL (0.2-1.0); TOTAL PROTEIN 5.2 g/dL (6.4-8.2)
[2020-02-03 12:23] LABS: ABSOLUTE NEUTROPHILS 18.2 thou/uL (1.4-8.2); ANISOCYTOSIS SLIGHT; METAMYELOCYTES 2 %; POIKILOCYTOSIS SLIGHT
[2020-02-03 12:24] LABS: LARGE PLATELETS OCCASIONAL
--- NOTE | 2020-02-03 14:43 | NUR ---
Received call from Ko Miller, patient's son...calling for status report on his mother. Status update provided. Son requesting call from Dr Jamin Anand regarding patient's status. Call placed to Stephanie at Dr Anand's office and information relayed along with son's phone number ([phone]). Informed she would pass information along to Dr Anand
--- NOTE | 2020-02-03 16:32 | NUR ---
Call placed to Dr Jackson to clarify IV fluids. Reviewed Lasix order and current climbing creatinine. Dr Jackson will review and adjust orders if needed. Renal has signed off.
--- NOTE | 2020-02-03 19:30 | NUR ---
Pt given complete bath. Linen change done with assistance of oncoming nurse. Pt noted to have dark reddish drainage from mouth when turned side to side. Remains in atrial fibrillation. Amiodarone is at 1 mg/hr. Remains on Fentanyl and Versed gtt. Noted to have eye opening and some spontaneous movement of right arm. Continue to support and work toward goals.
[2020-02-03 23:07] LABS: BE(vivo) -4.5 mmol/L (-2 to +3); HCO3 22.6 mmol/L (22.0-26.0); PCO2 50.2 mmHg (35.0-45.0); PO2 76.8 mmHg (80.0-100.0); sO2 93.5 % (92.0-98.0)
[2020-02-03 23:08] LABS: pH 7.272 (7.360-7.450)
[2020-02-04] VITALS (31 sets, daily range): BP systolic 107–139; BP diastolic 44–82
[2020-02-04 03:16] LABS: BE(vivo) -1.8 mmol/L (-2 to +3); HCO3 25.1 mmol/L (22.0-26.0); PCO2 52.5 mmHg (35.0-45.0); PO2 77.9 mmHg (80.0-100.0); sO2 94.1 % (92.0-98.0)
[2020-02-04 03:18] LABS: pH 7.298 (7.360-7.450)
[2020-02-04 05:36] LABS: HEMATOCRIT 34.7 % (37.0-47.0); MCH 30.3 pg (26.0-34.0); MCHC 31.7 g/dL (28.0-37.0); MCV 95.6 fL (80.0-100.0); PLATELET COUNT 175 thou/uL (150-400); RBC 3.63 mil/uL (4.20-5.00); WBC 20.3 thou/uL (4.0-11.0)
[2020-02-04 05:52] LABS: ALBUMIN 2.3 g/dL (3.4-5.0); CALCIUM 8.4 mg/dL (8.5-10.1); CREATININE 1.3 mg/dL (0.6-1.0); POTASSIUM 3.9 mmol/L (3.5-5.1); TOTAL BILIRUBIN 0.6 mg/dL (0.2-1.0); TOTAL PROTEIN 4.8 g/dL (6.4-8.2)
--- NOTE | 2020-02-04 07:32 | NUR ---
PT REMAINS SEDATED WITH FENTANYL AND VERSED FOR VENT MANAGEMENT. SHE OPENS HER EYES IN RESPONSE TO STIMULI BUT DOES NOT TRACK. SHE GRIMACES WITH PAINFUL STIMULI BUT DOES NOT FOLLOW COMMANDS. 2 AMPS BICARB GIVEN PER DR WHITEHEAD ORDER FOR ACIDOTIC ABG RESULTS. AMIO DRIP INFUSING FOR HR CONTROL. AFIB ON TELE. TF INCREASED TO GOAL RATE OF 50ML/HR. RESIDUALS LESS THAN 50ML ALL NIGHT. KEYS WITH ADEQUATE URINE OUTPUT. PROGRESSING SLOWLY TOWARD POC GOALS. REPORT GIVEN TO ONCOMING NURSE.
[2020-02-04 09:57] LABS: ABSOLUTE NEUTROPHILS 19.3 thou/uL (1.4-8.2); METAMYELOCYTES 1 %
[2020-02-04 09:58] LABS: ANISOCYTOSIS 1+
--- NOTE | 2020-02-04 18:26 | NUR ---
PT VENTED, 40% FIO2. TUBE FEEDING INFUSING. TOLERATING GOAL OF 50ML/HR. SEDATED ON FENT/VERSED GTT. PT OPENS EYES SPONTANEOUS, DOES NOT FOLLOW COMMANDS. WITHDRAWLS TO PAIN. AMIO GTT CONTINUED @ 1MG/HR FOR RATE CONTROL. PT IN AFIB WITH RATE IN 90'S TODAY. PT PROGRESSING TOWARDS GOALS.
[2020-02-05] VITALS (24 sets, daily range): BP systolic 102–142; BP diastolic 51–80
--- NOTE | 2020-02-05 00:56 | NUR ---
ASSESSMENT CHARTED, MEDS CHARTED GIVEN. TOOK OVER CARE AT 1900. PATIENT ON VENTILATOR WITH FENTANYL, VERSED, AMIO AND NS DRIPS RUNNING CHARTED. ACCU CHECKS Q6 AND ACHS. DOSED CHARTED. FALL PRECAUTIONS IN PLACE. DENIED PAIN. GAVE REPORT AT 0100. PASSED PATIENT TO ICU NURSE.
[2020-02-05 04:12] LABS: PCO2 52.5 mmHg (35.0-45.0); PO2 80.8 mmHg (80.0-100.0); sO2 94.6 % (92.0-98.0)
[2020-02-05 04:13] LABS: pH 7.296 (7.360-7.450)
--- NOTE | 2020-02-05 04:44 | NUR ---
ABG RESULTS CRITICAL PH [phone]. SPOKE WITH DR WHITEHEAD VIA PHONE REGARDING RESULTS. ORDER TO GIVE 1 AMP BICARB.
[2020-02-05 05:37] LABS: HEMOGLOBIN 10.8 gm/dL (12.0-15.0); MCH 30.5 pg (26.0-34.0); MCHC 31.8 g/dL (28.0-37.0); MCV 95.9 fL (80.0-100.0); PLATELET COUNT 175 thou/uL (150-400); RBC 3.55 mil/uL (4.20-5.00); RDW 16.1 % (10.5-14.5); WBC 22.5 thou/uL (4.0-11.0)
[2020-02-05 06:26] LABS: ALBUMIN 2.7 g/dL (3.4-5.0); CALCIUM 8.5 mg/dL (8.5-10.1); CREATININE 1.3 mg/dL (0.6-1.0); POTASSIUM 4.2 mmol/L (3.5-5.1); TOTAL BILIRUBIN 0.7 mg/dL (0.2-1.0); TOTAL PROTEIN 5.1 g/dL (6.4-8.2)
--- NOTE | 2020-02-05 11:11 | NUR ---
PATIENT REMAINS STABLE THROUGH AM. FOLLOWS COMMANDS WHEN SEDATION IS DECREASED. MOVES BILATERAL HANDS BUT DOES NOT FOLLOW COMMANDS WITH LOWER EXTREMITIES. REMAINS ON AMIO GTT FOR HEART RATE CONTROL. BLOOD PRESSURE STABLE. TOLERATING TUBE FEEDS. IV LASIX GIVEN. DR. DAMON ROUNDED WITH NO NEW ORDERS.
[2020-02-05 11:31] LABS: METAMYELOCYTES 2 %; MYELOCYTES 1 %
[2020-02-05 11:32] LABS: ABSOLUTE NEUTROPHILS 20.9 thou/uL (1.4-8.2); ANISOCYTOSIS 1+
--- NOTE | 2020-02-05 16:34 | NUR ---
ON-GOING ASSESSMENT: CM REVIEWED CHART. PT REMAINS SEDATED ON THE VENT. PER NURSING PATIENT IS TOLERATING TF AND REMAINS ON AMIO GTT. CM WILL CONTINUE TO FOLLOW TO ASSIST NEEDED.
--- NOTE | 2020-02-05 19:17 | NUR ---
RECEIVED REPORT FROM SOPHIE MCCRAY. ASSUMED PATIENT CARE.
[2020-02-06] VITALS (30 sets, daily range): BP systolic 115–196; BP diastolic 54–104
[2020-02-06 03:47] LABS: BE(vivo) -2.2 mmol/L (-2 to +3); HCO3 24.1 mmol/L (22.0-26.0); PCO2 47.5 mmHg (35.0-45.0); PO2 93.9 mmHg (80.0-100.0); sO2 96.6 % (92.0-98.0)
[2020-02-06 03:48] LABS: pH 7.333 (7.360-7.450)
[2020-02-06 06:55] LABS: HEMATOCRIT 36.6 % (37.0-47.0); MCH 31.3 pg (26.0-34.0); MCHC 32.9 g/dL (28.0-37.0); MCV 95.3 fL (80.0-100.0); RBC 3.85 mil/uL (4.20-5.00); RDW 16.6 % (10.5-14.5); WBC 29.5 thou/uL (4.0-11.0)
[2020-02-06 07:20] LABS: ALBUMIN 2.9 g/dL (3.4-5.0); CALCIUM 8.9 mg/dL (8.5-10.1); CREATININE 1.5 mg/dL (0.6-1.0); TOTAL BILIRUBIN 0.7 mg/dL (0.2-1.0); TOTAL PROTEIN 5.5 g/dL (6.4-8.2)
[2020-02-06 10:45] LABS: ABSOLUTE NEUTROPHILS 26.6 thou/uL (1.4-8.2); ANISOCYTOSIS 1+; METAMYELOCYTES 3 %; PLATELET COUNT 194 thou/uL (150-400)
--- NOTE | 2020-02-06 10:49 | NUR ---
Turned fentanyl and versed off for sedation vacation at 0817, patient became more awake at 0930. Upon assessment, no meaningful movements noted, tracking or any indication of alertness. Pt became tacycardiac and hypertensive. Discussed with Jaskaran RT, to hold off on CPAP trialing at the moment. This RN turned back on Fentanyl and Versed gtts and patients BP is decreasing into normal range.
--- NOTE | 2020-02-06 11:03 | NUR ---
VASCULAR TEAM SPOKE WITH PREETHI RN ABOUT PT'S CONTINUED BLOODY DRG ON CENTRAL LINE, DRESSINGS HAVE BEEN CHANGED DAILY AND WHEN BLOODY. RECOMMENDED TO INFORM DR MICHAEL ABOUT NEED FOR POSSIBLE TICC OR SC LINE DUE TO POSS CLABI POTENTIAL
--- NOTE | 2020-02-06 11:08 | NUR ---
ON-GOING ASSESSMENT: CM REVIEWED CHART. PT REMAINS IN ISOLATION FOR COVID. PT REMAINS ON THE VENTILATOR. CPAP TRIALS ARE ON HOLD RIGHT NOW TODAY PATIENT IS TACHY AND HYPERTENSIVE. CM REACHED OUT AND SPOKE WITH PATIENTS SON CONNOR TO UPDATE. CM WILL CONTINUE TO FOLLOW TO ASSIST NEEDED.
[2020-02-06 17:46] LABS: CALCIUM 7.8 mg/dL (8.5-10.1); CREATININE 1.4 mg/dL (0.6-1.0); POTASSIUM 4.8 mmol/L (3.5-5.1)
--- NOTE | 2020-02-06 18:08 | NUR ---
Nurse spoke with Dr. Anand in regards to the central line recommendations by IV Team RN. Dr. Anand expressed we will plan for a TICC placement on Sunday and to continue to monitor Central Line site and change dressing as required.
--- NOTE | 2020-02-06 18:35 | NUR ---
Pts WBC is trending upward. Started on Zosyn and Fluconazole this evening. Pts skin remains tight and pendulous, still no BM today. Plan for TICC line placement on Sunday due to oozing PICC line, that is unable to stop oozing. Pt still requiring heavy mechanical ventilation and therefore is not progressing towards goals.
[2020-02-07] VITALS (44 sets, daily range): BP systolic 117–176; BP diastolic 54–111
[2020-02-07 04:30] LABS: HCO3 24.4 mmol/L (22.0-26.0); PCO2 48.6 mmHg (35.0-45.0); pH 7.319 (7.360-7.450); sO2 95.1 % (92.0-98.0)
[2020-02-07 05:38] LABS: HEMATOCRIT 34.8 % (37.0-47.0); HEMOGLOBIN 11.4 gm/dL (12.0-15.0); MCH 31.1 pg (26.0-34.0); MCHC 32.8 g/dL (28.0-37.0); MCV 94.9 fL (80.0-100.0); PLATELET COUNT 172 thou/uL (150-400); RBC 3.67 mil/uL (4.20-5.00); RDW 16.4 % (10.5-14.5); WBC 24.4 thou/uL (4.0-11.0)
[2020-02-07 05:40] LABS: ALBUMIN 2.7 g/dL (3.4-5.0); CALCIUM 8.7 mg/dL (8.5-10.1); CREATININE 1.6 mg/dL (0.6-1.0); POTASSIUM 4.4 mmol/L (3.5-5.1); TOTAL BILIRUBIN 0.8 mg/dL (0.2-1.0); TOTAL PROTEIN 5.3 g/dL (6.4-8.2)
[2020-02-07 05:52] LABS: FIBRINOGEN 113.7 mg/dL (210-360)
[2020-02-07 05:58] LABS: D-DIMER < 0.19 ug/mLFEU (0.19-0.50)
--- NOTE | 2020-02-07 07:45 | NUR ---
pT STILL HAVING COPIOUS AMOUNT OF BLOODY DRANAGE FROM TLC. DRESSING CHANGE A MINIMUM OF Q SHIFT.
[2020-02-07 10:22] LABS: ABSOLUTE NEUTROPHILS 21.5 thou/uL (1.4-8.2); METAMYELOCYTES 5 %; NUCLEATED RBCS 3 /100WBC
[2020-02-07 10:23] LABS: ANISOCYTOSIS 1+; MYELOCYTES 2 %
--- NOTE | 2020-02-07 19:58 | NUR ---
ASSUMED CARE AT 0700, ASSESSMENT AND VITAL SIGNS COMPLETED PER ICU PROTOCOL. DR. DAMON AND DR. WHITEHEAD ROUNDED THIS AM, PLAN OF CARE DISCUSSED. RN WILL CONTINUE TO MONITOR.
[2020-02-08] VITALS (42 sets, daily range): BP systolic 104–170; BP diastolic 48–101
--- NOTE | 2020-02-08 13:09 | NUR ---
PATIENT REMAINS INTUBATED AND SEDATED, OFF PRESSERS. NO APPARENT PAIN. ASSESSMENT CHARTED. NO MAJOR EVENTS TODAY. TURN Q2H FOR COMFORT AND PRESSURE RELIEF. NO FURTHER CONCERNS AT THIS TIME. WILL CONTINUE TO MONITOR AND CARE PER PLAN OF CARE.
[2020-02-09] VITALS (42 sets, daily range): BP systolic 116–156; BP diastolic 60–88
--- NOTE | 2020-02-09 07:19 | NUR ---
NO SIGNIFICANT EVENTS OVERNIGHT. PT REMAINS SEDATED WITH PRECEDEX AND FENTANYL FOR VENT MANAGEMENT. TF VIA OGT, TOLERATING WELL. KEYS TO DD WITH ADEQUATE URINE OUTPUT. AFEBRILE. AFIB ON TELE; RATE CONTROLLED WITH AMIO GTT. FALL PRECAUTIONS IN PLACE. NOT PROGRESSING WELL TOWARD POC GOALS. REPORT GIVEN TO ONCOMING NURSE.
--- NOTE | 2020-02-09 08:30 | NUR ---
noted pt remains intubated with tf for nutritional support. cont with weaning trials.
--- NOTE | 2020-02-09 14:46 | NUR ---
son Ko called me directly and voiced his concerns, which he has asked about seeing his mom before. I want to see her, shes going to get worn out and it will be too late. Then I will let everyone know how to see their loved one with covid in hospital before they . your department has been great to speak with and I know you cannot give the ok for this but i am going to seek gambling counsellor to see my mom. if the doctors and nurse can get all geared up and go in family should be able to as well, not saying to go hug her or even hold her hand but just be able to talk with her and not through facetime. I want to see my mom. i will make my point, just upsets me. I can even sign legal paperwork saying hospital not responsible .I need help to be able to see my mom and talk with her please.
[2020-02-09 20:31] LABS: CALCIUM 8.7 mg/dL (8.5-10.1); CREATININE 1.6 mg/dL (0.6-1.0); POTASSIUM 4.5 mmol/L (3.5-5.1)
[2020-02-10] VITALS (44 sets, daily range): BP systolic 109–153; BP diastolic 56–95
[2020-02-10 05:21] LABS: HEMATOCRIT 35.9 % (37.0-47.0); HEMOGLOBIN 11.7 gm/dL (12.0-15.0); MCH 30.6 pg (26.0-34.0); MCHC 32.5 g/dL (28.0-37.0); MCV 94.2 fL (80.0-100.0); PLATELET COUNT 127 thou/uL (150-400); RBC 3.82 mil/uL (4.20-5.00); RDW 16.4 % (10.5-14.5); WBC 26.3 thou/uL (4.0-11.0)
[2020-02-10 06:14] LABS: CALCIUM 8.6 mg/dL (8.5-10.1); CREATININE 1.5 mg/dL (0.6-1.0); POTASSIUM 4.7 mmol/L (3.5-5.1)
--- NOTE | 2020-02-10 06:38 | NUR ---
PT WAS RESTLESS AND AGITATED WITH NURSING CARE AT TIMES DURING THE NIGHT. SHE WOULD SHAKE HER HEAD SIDE TO SIDE OR BITE ON ETT. PT ALSO ATTEMPTED TO PULL UP WITH HER ARMS AGAINST HER WRIST RESTRAINTS. INCREASED SEDATION. PT IS SEDATED WITH FENTANYL AND PRECEDEX. COMPLETE BED BATH GIVEN. PT NOTED TO HAVE REDNESS/EXOCRIATION UNDER SKIN FOLDS. NYSTATIN POWDER APPLIED TO RED AREAS. PT HAD SMALL LOOSE BOWEL MOVEMENT THIS SHIFT. TOLERATING TF WELL AT GOAL RATE. KEYS NOTED TO BE LEAKING AND URINE WAS VERY CONCENTRATED. FLUSHED KEYS AND SOME BLOODY CLOTS WERE DISLODGED. REPLACED KEYS WITH NEW CATHETER. OLD KEYS NOTED TO HAVE TISSUE CLOTTED AROUND CATHETER TIP. PT NOW HAS HEMATURIA WITHOUT CLOTS. NOTIFIED ITALO DRUMMOND NP STOCK UNLOADER FOR HOSPITALIST. ORDERS RECEIVED TO HOLD AM DOSE OF LOVENOX AND OBTAIN UA WITH C&S. PT NOT PROGRESSING WELL TOWARD POC GOALS. WILL GIVEN REPORT TO ONCOMING NURSE.
[2020-02-10 09:02] LABS: ABSOLUTE NEUTROPHILS 22.6 thou/uL (1.4-8.2); ANISOCYTOSIS 1+; PLATELET ESTIMATE NORMAL
[2020-02-10 09:45] LABS: URINE BLOOD 3+ (Negative); URINE CLARITY CLOUDY; URINE COLOR RED; URINE GLUCOSE-RANDOM* NEGATIVE (Negative); URINE KETONES TRACE (Negative); URINE PROTEIN (DIPSTICK) 2+ (Negative); URINE SPECIFIC GRAVITY 1.015 (1.005-1.035)
[2020-02-10 10:00] LABS: ICTOTEST (BILI CONFIRMATORY) Negative (Negative); URINE BILIRUBIN NEGATIVE (Negative); URINE LEUKOCYTES-REFLEX 2+ (Negative); URINE NITRITE-REFLEX POSITIVE (Negative)
[2020-02-10 10:02] LABS: CASTS None Seen /LPF (None Seen); SQUAMOUS 0-3 Few /LPF (0-3)
[2020-02-10 10:03] LABS: BACTERIA-REFLEX 1-9 Few /HPF (None Seen); MUCUS 0-3 Light strn/LPF (None Seen); URINE RBC >20 Many /HPF (0-2); URINE WBC-REFLEX 6-15 Few /HPF (0-5)
[2020-02-10 10:04] LABS: CRYSTALS None Seen /LPF (None Seen); WBC CLUMPS Occasional (None Seen)
--- NOTE | 2020-02-10 18:33 | NUR ---
PATIENT MAKES NO IMPROVMENT WITH WEANING OXYGEN AND UNSUCCESSFUL CPAP TRIAL. NO COMMANDS. PATIENT INCREASED ON SEDATION DURING THE DAY FOR RESTLESSNESS ON VENTILATOR. MD AWARE OF BLEEDING FROM THE URINARY CATHETER. NO NEW ORDERS. NO WORSENING OF URINE IN COLOR. ADEQUATE URINE OUTPUT. UPDATED FAMILY ON PATIENT STATUS.
--- NOTE | 2020-02-10 19:54 | NUR ---
1900-RECEIVED PATIENT REPORT FROM ANNA MCCRAY. ASSUMED PATIENT CARE.
[2020-02-11] VITALS (38 sets, daily range): BP systolic 103–151; BP diastolic 61–98
[2020-02-11 06:37] LABS: HEMATOCRIT 33.5 % (37.0-47.0); HEMOGLOBIN 11.1 gm/dL (12.0-15.0); MCH 31.5 pg (26.0-34.0); MCHC 33.2 g/dL (28.0-37.0); MCV 94.9 fL (80.0-100.0); RBC 3.53 mil/uL (4.20-5.00); RDW 16.6 % (10.5-14.5); WBC 21.3 thou/uL (4.0-11.0)
[2020-02-11 06:40] LABS: CALCIUM 8.4 mg/dL (8.5-10.1); CREATININE 1.4 mg/dL (0.6-1.0); POTASSIUM 4.9 mmol/L (3.5-5.1)
--- NOTE | 2020-02-11 18:04 | NUR ---
PATIENT DOES NOT IMPROVE IN PLAN OF CARE TODAY. CONTINUES ON PRIOR VENTILATOR SETTINGS.
--- NOTE | 2020-02-11 18:10 | NUR ---
VASCULAR ACCESS TEAM HERE FOR DRESSING CHANGE DUE TO BLOODY DRG. SKIN SURROUNDING INSERTION SITE DENUTED FROM CONTINOUS MOISTURE. PRIMARY RN INFORMED OF MOISTURE AT SITE.
[2020-02-12] VITALS (19 sets, daily range): BP systolic 117–169; BP diastolic 67–105
[2020-02-12 05:32] LABS: HEMATOCRIT 34.2 % (37.0-47.0); HEMOGLOBIN 11.2 gm/dL (12.0-15.0); MCH 31.1 pg (26.0-34.0); MCHC 32.7 g/dL (28.0-37.0); MCV 95.1 fL (80.0-100.0); RBC 3.59 mil/uL (4.20-5.00); RDW 16.8 % (10.5-14.5); WBC 26.1 thou/uL (4.0-11.0)
[2020-02-12 05:40] LABS: CALCIUM 8.7 mg/dL (8.5-10.1); POTASSIUM 5.2 mmol/L (3.5-5.1)
--- NOTE | 2020-02-12 06:43 | NUR ---
PT MODERATELY SEDATED ON FENTANYL AND PRECEDEX. PT OPENS EYES , BUT DOES NOT TRACK OR FOLLOW COMMANDS, GETS AGITATED WITH ORAL CARE, MOVES HEAD AND BITES LIPS. VENT SETTINGS REMAIN THE SAME, AFIB ON THE MONITOR, RATE CONTROLLED. TUBE FEEDING AT GOAL, NO RESIDULAS. SKIN EDEMATOUS, EXCORIATED IN BREAST FOLDS, PANNUS AND BUTTOCKS, RIGHT AXILLA, SKIN SLOUGHING IN THESE AREAS, PERICARE AND BARRIER CREAM APPLIED AND NYSTATIN PER ORDERS. FECAL MANAGEMENT TUBE PLACED THIS AM ,PT HAVING LOOSE/LIQUID BOWEL MOVEMENTS. LOW GRADE FEVER LAST NIGHT. RIGHT IJ OOZING BLOOD, DRESSING CHANGE DONE, SKIN AROUND IJ SITE IMPAIRED D/T CONSTANT MOISTURE. KEYS WITH HEMATURIA, OUTPUT 2600CC OVERNIGHT.
--- NOTE | 2020-02-12 08:06 | NUR ---
stable on vital HP at 50ml/hr
--- NOTE | 2020-02-12 09:10 | NUR ---
0700 BEDSIDE SHIFT REPORT RECEIVED. PT IS AWAKE. CONTROLLED AFIB NOTED, ON AMIODARONE DRIP. fENTANYL AND PRECEDEX DRIP FOR SEDATION. tOLERATING VENT ON ACVC SETTINGS. WILL CONTINUE TO MONITOR.
--- NOTE | 2020-02-12 09:14 | NUR ---
ASSESSMENTS DONE. PT PUT ON SEDATION VACATION. IS ALERT TO SELF, ABLE TO FOLLOW COMMANDS. dENIES PAIN OR DISCOMFORT. VS WNL. TEMP OF 98.6. TOLERATING ACVC SETTINGS. KEYS AND RECTAL TUBE INTACT. CLEAR LUNG SOUNDS ON BILATERAL UPPER LOBES, DIMINISHED ON BILATERAL LOWER LOBES. ABDOMEN SOFT, NON DISTENDED. GENERALIZED PITTING EDEMA OF 4+. WILL CONTINUE TO MONITOR.
--- NOTE | 2020-02-12 10:11 | NUR ---
DR PRAJAPATI PRESENT, UPDATED ABOUT PT. BLOOD SUFAR 68. GAVE ORDER TO RECHECK IT AN HOUR AND IF STILL BELOW 70, FOLLOW PROTOCOL.
--- NOTE | 2020-02-12 15:32 | NUR ---
>>>>1230 PT ON CPAP TRIAL. LASTED 3 MINS. PT BECAME TACHYPNEIC WITH RESPIRATIONS OF 36. bECAME RESTRESS THUS CPAP TRIAL WAS STOPPED. PT PUT BACK TO PREVIOUS VENT SETTINGS.
--- NOTE | 2020-02-12 22:46 | NUR ---
PATIENT MAXED ON FENTANYL AND PRECEDEX, DOSE OF HALDOL GIVEN WITH NO RESULT NOTED. PATIENT IS AWAKE WITH EYES OPEN, RAISING HEAD FROM BED, MOVING HEAD BACK AND FORTH, RR 25-35. PATIENT CONT IN AFIB WITH RATES UP TO 110'S ON AMIO GTT. VERSED GTT NOTED ON AUG, WILL BE STARTED FOR PT VENT COMPLIANCE
[2020-02-13] VITALS (54 sets, daily range): BP systolic 113–160; BP diastolic 59–90
[2020-02-13 05:01] LABS: INR 1.2; PROTIME 11.8 Seconds (9.3-11.4)
[2020-02-13 05:05] LABS: CALCIUM 8.1 mg/dL (8.5-10.1); POTASSIUM 4.7 mmol/L (3.5-5.1)
[2020-02-13 05:25] LABS: HEMATOCRIT 30.5 % (37.0-47.0); HEMOGLOBIN 10.1 gm/dL (12.0-15.0); MCH 31.5 pg (26.0-34.0); MCHC 33.2 g/dL (28.0-37.0); MCV 94.7 fL (80.0-100.0); RBC 3.22 mil/uL (4.20-5.00); RDW 16.5 % (10.5-14.5); WBC 14.3 thou/uL (4.0-11.0)
--- NOTE | 2020-02-13 10:20 | NUR ---
CALLED SUBHASH RYAN TO OBTAIN CONSENT FOR PEG AND TRACH TODAY. MESSAGE LEFT ON VOICEMAIL.
--- NOTE | 2020-02-13 10:40 | NUR ---
cm spoke with or pt on [facility] for 1230 trach and peg. possible will get trach and peg today. emerald spoke with bedside nurse, still trying to reach son josseline for consent for procedure today. cm called juanjose manjarrez [phone], left message requested a return call back. shalonda remains intubated with tf for nutritional support. no anticpated dc over the weekend. will cont following as needed for dc needs. dcp ltac if get trach and peg vs pt and son choice.
--- NOTE | 2020-02-13 12:09 | NUR ---
PT TO OR FOR TRACH AND PEG PLACEMENT.
--- NOTE | 2020-02-13 13:40 | NUR ---
PT BACK FROM OR IN BED. PT HAS #[address] 24 ARABIC PEG TUBE BUMPER LEVEL @ 6. ABD BINDER IN PLACE. PT HAS VERSED, PRECEDEX, AND AMIO STILL RUNNING. FENTANYL IS OFF CURRENTLY.
--- NOTE | 2020-02-13 16:00 | NUR ---
CALLED AND TALKED TO CONNOR SON WITH AN UPDATE ON PT. QUESTIONS ANSWERED.
--- NOTE | 2020-02-13 19:05 | NUR ---
PT FOLLOWING COMMANDS. PT TO OR TODAY FOR TRACH AND PEG PLACEMENT. OK TO START USING BOTH PER DR. PETIT. VSS. PT ON PRECEDEX AND VERSED FOR VENT MANAGEMENT. CONTINUES WITH AMIODARONE GTT. RECTAL TUBE, KEYS IN PLACE. SON CONNOR CALLED BRANDYNOUT THE DAY AND UPDATED ON PT CONDITION.
[2020-02-14] VITALS (24 sets, daily range): BP systolic 122–170; BP diastolic 73–91
[2020-02-14 05:08] LABS: HEMATOCRIT 32.8 % (37.0-47.0); HEMOGLOBIN 10.8 gm/dL (12.0-15.0); MCH 31.4 pg (26.0-34.0); MCHC 32.8 g/dL (28.0-37.0); MCV 95.7 fL (80.0-100.0); RBC 3.43 mil/uL (4.20-5.00); RDW 16.9 % (10.5-14.5); WBC 16.6 thou/uL (4.0-11.0)
[2020-02-14 05:29] LABS: CALCIUM 8.4 mg/dL (8.5-10.1); CREATININE 0.9 mg/dL (0.6-1.0); POTASSIUM 4.4 mmol/L (3.5-5.1)
--- NOTE | 2020-02-14 18:36 | NUR ---
SPOKE WITH SON CONNOR, REQUESTING PT TO BE RETESTED FOR COVID BC HE WOULD LIKE TO SEE HER. [facility] APPROVED COVID SWAB FOR 02/14 PCR TESTING. RELAYED INFO TO SON, HE WAS PLEASED [facility] APPROVED TESTING. CHANGED PT SEVERAL TIMES, PT SEVERE THIRD SPACING, ARMINDA SATURATED WITH SEROUS DRAINAGE FROM SKIN. PT TOLERATING PRECEDEX WEANING, OFF VERSED, AMIO 1MG/MIN, HR 105-110, BP STABLE. PT RESPONDS APPROPRITELY TO YES/NO QUESTIONS WITH NOD.
[2020-02-15] VITALS (25 sets, daily range): BP systolic 103–172; BP diastolic 62–112
[2020-02-15 04:50] LABS: HEMATOCRIT 32.6 % (37.0-47.0); HEMOGLOBIN 10.9 gm/dL (12.0-15.0); MCH 31.3 pg (26.0-34.0); MCHC 33.5 g/dL (28.0-37.0); MCV 93.5 fL (80.0-100.0); RBC 3.49 mil/uL (4.20-5.00); RDW 16.5 % (10.5-14.5); WBC 16.3 thou/uL (4.0-11.0)
[2020-02-15 04:54] LABS: CALCIUM 8.5 mg/dL (8.5-10.1); CREATININE 1.1 mg/dL (0.6-1.0)
[2020-02-15 04:56] LABS: POTASSIUM 3.4 mmol/L (3.5-5.1)
--- NOTE | 2020-02-15 18:31 | NUR ---
PT PROGRESSING TOWARDS GOALS. PT IS ALERT, TRYING TO MOUTH WORDS TO STAFF. FOLLWING COMMANDS. PRECEDEX FOR SEDATION. TF @ 50 GOAL AND TOLERATING WITH MINIMAL RESIDUALS. AMIO GTT STILL @ 1MG/HR. RECTAL TUBE AND KEYS INTACT.
[2020-02-16] VITALS (23 sets, daily range): BP systolic 116–164; BP diastolic 64–98
--- NOTE | 2020-02-16 05:13 | NUR ---
PT PLACED ON BIPAP AROUND 0000, MAINATINED SATS ABOVE 97%. PT WITH DECREASED LOC, OPENS EYES TO VOICE, CONFUSED, WEAK. TUBE FEEDING AND RESTRAINTS STOPPED PER MOBILE HEAVY EQUIPMENT MECHANIC ANTONELLA ORDERS. PT GOT HYPOTENSIVE SBP IN THE 70'S, ALBUMIN X1 GIVEN PER ORDERS. PT'S SON CONNOR CALLED FOR UPDATE AFTER PT WAS IN ICU. HE SAID HE WOULD LIKE TO SPEAK TO THE LEADERSHIP COACH OR HOSPITALIST TODAY AFTER THEY ROUND ON THE PATIENT TODAY.
--- NOTE | 2020-02-16 15:11 | NUR ---
ASSUMED CARE @ 0700 02/16/20, PT ASSESSMENTS AND VSS COMPLETE PER ICU PROTOCOL. PT ENCOUTERED ON THE VENT, FIO2 40, FIO2 NOW DOWN TO 35% SATS IN 93-96%. PT ENCOUTERED ON A PRECEDEX GTT, PT ABLE TO FOLLOW COMMANDS. PT ON AMIO GTT AT THE START OF THE SHIFT, RN INVESTIGATES AND FINDS OUT PT HAS BEEN ON AN AMIO GTT FOR A LONG WHILE, RN CALLS CARDIOLOGY TO GET CLARIFICATION ON ORDERS, AMIO GTT DC'D AND ORDERS RECIEVED. DR PRAJAPATI HERE THIS AM TO ROUND, NO NEW ORDERS RECIEVED AT THIS TIME. @ 1101, CONNOR PT'S SON CALLED FOR AN UPDATE, CODE VERIFIED, UPDATE GIVEN.
[2020-02-17] VITALS (21 sets, daily range): BP systolic 114–160; BP diastolic 60–96
[2020-02-17 04:44] LABS: HEMATOCRIT 30.9 % (37.0-47.0); HEMOGLOBIN 10.4 gm/dL (12.0-15.0); MCHC 33.7 g/dL (28.0-37.0); MCV 94.9 fL (80.0-100.0); RBC 3.25 mil/uL (4.20-5.00); RDW 16.8 % (10.5-14.5); WBC 10.6 thou/uL (4.0-11.0)
[2020-02-17 04:47] LABS: CALCIUM 8.9 mg/dL (8.5-10.1)
--- NOTE | 2020-02-17 15:32 | NUR ---
MINDY reviewed chart and spoke with attending physician. Pt remains in Enhanced Isolation due to COVID-19. Pt had repeat test done on 02/14. Results are pending. Pt had trach/peg placed on 02/12. Pt to have TICC line placed today. Pt is afebrile and on IV abx/IV steroids. MINDY left voice message for pt's son, Ko, to discuss post-acute placement in an LTAC. MINDY is following to assist as needed with discharge planning.
[2020-02-18] VITALS (38 sets, daily range): BP systolic 120–160; BP diastolic 58–86
[2020-02-18 04:52] LABS: ABSOLUTE NEUTROPHILS 11.2 thou/uL (1.4-8.2); BASOPHILS 0.4 % (0.0-2.0); EOSINOPHILS 0.2 % (0.0-3.0); HEMATOCRIT 33.1 % (37.0-47.0); HEMOGLOBIN 10.8 gm/dL (12.0-15.0); LYMPHOCYTES 3.4 % (24.0-44.0); MCH 31.1 pg (26.0-34.0); MCHC 32.7 g/dL (28.0-37.0); MONOCYTES 3.7 % (1.0-8.0); PLATELET COUNT 171 thou/uL (150-400); POLYS 92.3 % (36.0-66.0); RBC 3.48 mil/uL (4.20-5.00); RDW 17.3 % (10.5-14.5); WBC 12.1 thou/uL (4.0-11.0)
[2020-02-18 05:11] LABS: ALBUMIN 2.8 g/dL (3.4-5.0); CALCIUM 8.8 mg/dL (8.5-10.1); POTASSIUM 3.9 mmol/L (3.5-5.1); TOTAL PROTEIN 5.8 g/dL (6.4-8.2)
[2020-02-18 08:15] LABS: BE(vivo) 12.2 mmol/L (-2 to +3); HCO3 37.4 mmol/L (22.0-26.0); PCO2 51.5 mmHg (35.0-45.0); PO2 79.6 mmHg (80.0-100.0); pH 7.479 (7.360-7.450); sO2 96.3 % (92.0-98.0)
--- NOTE | 2020-02-18 09:37 | NUR ---
cm called son josseline, left message requested return call. needing to know where pt and son would like ltac referral sent to for next level of care.
--- NOTE | 2020-02-18 19:21 | NUR ---
PATIENT HAS RESTED IN BED THROUGH THE DAY. SHE DOES NOT SEEM ANXIOUS. HR HAS BEEN STEADY THROUGH THE DAY. SHE CAN FOLLOW SIMPLE COMMANDS. TURNED Q2. PLEASANT WITH CARE. WILL CONT WITH PLAN OF CARE.
[2020-02-19] VITALS (24 sets, daily range): BP systolic 104–165; BP diastolic 32–88
[2020-02-19 03:21] LABS: BE(vivo) 13.3 mmol/L (-2 to +3); HCO3 37.9 mmol/L (22.0-26.0); PCO2 48.6 mmHg (35.0-45.0); PO2 85.8 mmHg (80.0-100.0); sO2 97.1 % (92.0-98.0)
[2020-02-19 03:55] LABS: ABSOLUTE NEUTROPHILS 6.9 thou/uL (1.4-8.2); BASOPHILS 0.1 % (0.0-2.0); EOSINOPHILS 0.1 % (0.0-3.0); HEMATOCRIT 29.8 % (37.0-47.0); HEMOGLOBIN 9.9 gm/dL (12.0-15.0); LYMPHOCYTES 5.2 % (24.0-44.0); MCH 31.5 pg (26.0-34.0); MCHC 33.2 g/dL (28.0-37.0); MONOCYTES 4.4 % (1.0-8.0); PLATELET COUNT 152 thou/uL (150-400); POLYS 90.2 % (36.0-66.0); RBC 3.14 mil/uL (4.20-5.00); WBC 7.6 thou/uL (4.0-11.0)
[2020-02-19 04:05] LABS: ALBUMIN 2.6 g/dL (3.4-5.0); CALCIUM 8.7 mg/dL (8.5-10.1); POTASSIUM 3.5 mmol/L (3.5-5.1); TOTAL PROTEIN 5.4 g/dL (6.4-8.2)
--- NOTE | 2020-02-19 07:45 | NUR ---
BEDSIDE SHIFT REPORT RECEIVED. CONTINUES ON AC 14, PEEP 5.0, TV 450, FIO2 35%. ALERT TO SELF, ABLE TO FOLLOW COMMANDS. 02 AT 98%. WILL CONTINUE TO MONITOR.
[2020-02-19 09:38] LABS: BE(vivo) 10.7 mmol/L (-2 to +3); HCO3 35.3 mmol/L (22.0-26.0); PCO2 47.1 mmHg (35.0-45.0); PO2 101.3 mmHg (80.0-100.0); pH 7.492 (7.360-7.450)
--- NOTE | 2020-02-19 11:38 | NUR ---
cm faxed updates to [facility].
--- NOTE | 2020-02-19 19:40 | NUR ---
cpap trial for several hours today, well tolerated. became anxious, respirations increased and red in face. per collaboration with Ayo RT, returned to assist control then pt intermittently resting. metoprolol increased related to afib up to 119. tube feeding pump unavailable, bolus tube feedings well tolerated. pending am transfer to [facility].
[2020-02-20] VITALS (102 sets, daily range): BP systolic 66–145; BP diastolic 28–97
[2020-02-20 04:05] LABS: ALBUMIN 2.4 g/dL (3.4-5.0); CALCIUM 8.5 mg/dL (8.5-10.1); CREATININE 0.9 mg/dL (0.6-1.0); POTASSIUM 3.2 mmol/L (3.5-5.1); TOTAL BILIRUBIN 0.7 mg/dL (0.2-1.0); TOTAL PROTEIN 5.4 g/dL (6.4-8.2)
[2020-02-20 04:18] LABS: HEMATOCRIT 31.4 % (37.0-47.0); HEMOGLOBIN 10.5 gm/dL (12.0-15.0); MCH 31.7 pg (26.0-34.0); MCHC 33.4 g/dL (28.0-37.0)
[2020-02-20 04:20] LABS: MCV 94.9 fL (80.0-100.0); PLATELET COUNT 169 thou/uL (150-400); RBC 3.31 mil/uL (4.20-5.00); RDW 16.9 % (10.5-14.5)
[2020-02-20 04:57] LABS: WBC 1.9 thou/uL (4.0-11.0)
[2020-02-20 05:09] LABS: BE(vivo) 10.8 mmol/L (-2 to +3); PCO2 51.3 mmHg (35.0-45.0); PO2 61.6 mmHg (80.0-100.0); pH 7.464 (7.360-7.450); sO2 92.5 % (92.0-98.0)
[2020-02-20 05:46] LABS: ABSOLUTE NEUTROPHILS 1.5 thou/uL (1.4-8.2); NUCLEATED RBCS 2 /100WBC
[2020-02-20 05:47] LABS: ANISOCYTOSIS 1+; PLATELET ESTIMATE NORMAL
--- NOTE | 2020-02-20 07:27 | EKG ---
[facility] [place] [address] ELECTROCARDIOGRAM REPORT Name: TOPHER MARTÍNEZ Room #: 240-P ADM IN M.R.#: [id number] Admission: 01/15/20 Attend Phys: Billy Storm MD Discharge: Date of : 45 Report #: [id number] THIS REPORT FOR: cc: Hector Perez MD, Rene P. MD Santiago, Patrick MD [facility] ~ THIS REPORT FOR: //name// [facility] Test Date: 2020-02-20 Test Time: 06:13:11 Pat Name: TOPHER MARTÍNEZ Department: Room: 240 P Gender: F Complaint Specialist: JACLYN : 1945 Requested By: Sophie Arreguin Order Number: [id number] MD: Regino Brunner Measurements Intervals [place] Rate: 104 P: IN: QRS: 39 QRSD: 80 T: 237 QT: 335 QTc: 441 Interpretive Statements Atrial fibrillation Repol abnrm suggests ischemia, diffuse leads Baseline wander in lead(s) V1 Compared to ECG 01/16/2020 07:19:48 Early repolarization now present Possible ischemia now present Poor R-wave progression no longer present Electronically Signed On 02-20-2020 7:27:51 CDT by Regino Brunner [email or web address] <ELECTRONICALLY SIGNED> By: Regino Brunner MD, [facility] 02/20/20726 2 2 Regino Brunner MD, [facility] /EPI
--- NOTE | 2020-02-20 07:40 | NUR ---
DR WHITEHEAD NOTIFIED AT 0530 OF LOW BP, NOT PRECEDED BY MEDS/MVT 80'S/30'S; ABG RESULTS, CRITICAL WBC VALUE OF 1.9., BG 134, PATIENT SOMNOLENT. ABLE TO WAKE PATIENT WHO THEN FOLLOWS COMMANDS BUT ALSO FALL ASLEEP RIGHT AWAY. WITHDRAWS FROM PAIN IN ALL 4 EXTREMITIES, DENIES CP, ABD SOFT AND NO RESIDUALS. ORDERS TO INCREASE PEEP TO 8, FI02 TO 45%, GIVE 500CC BOLUS AND DC SEROQUEL. BP DID NOT RESPOND TO BOLUS, CALL TO ITALO DRUMMOND AT 0545, PRESSURES CONTINUE IN 70'S-80'S. ORDER RECIEVED FOR LEVO AND EKG, THERE WAS CONCERN BY THIS RN FOR ST DEPRESSION ON MONITOR, AND NO OTHER IMMEDIATELY DISCERNABLE REASON FOR SPONTANEOUS DROP IN BP DESPITE CUFF READJUSTMENT. ATTEMPTED CALL TO DR. MCCONNELL AT 0505 REGARDING WBC, NO RETURN PAGE RECIEVED. ATTEMPTED TO NOTIFY CARDIOLOGY TO DISCUSS POSSIBILITY OF NEEDING MORE FLUIDS, BUT WAS UNABLE TO REACH ANSWERING SERVICE. LEVO ON AND TITRATED FOR MAP >65 PER ORDER. PATIENT MORE ALERT, DROWSY BUT AROUSABLE AND ABLE TO NOD/SHAKE HEAD AND FOLLOW SIMPLE COMMANDS. HELD 0600 CARDIZEM DUE TO BP, HR 110-130'S.
--- NOTE | 2020-02-20 08:29 | NUR ---
TALKED WITH COAL PULVERIZING OPERATOR CIVIL ENGINEERING DESIGN DRAFTSPERSON REGARDING HR, AND BP. HOLD CARDIZEM DOSE FOR NOW. CONTINUE WITH LEVOPHED.
[2020-02-20 09:14] LABS: HEMATOCRIT 30.1 % (37.0-47.0)
[2020-02-20 09:16] LABS: HEMOGLOBIN 10.3 gm/dL (12.0-15.0); MCH 32.1 pg (26.0-34.0); MCHC 34.3 g/dL (28.0-37.0); MCV 93.7 fL (80.0-100.0); PLATELET COUNT 153 thou/uL (150-400); RBC 3.21 mil/uL (4.20-5.00); RDW 16.9 % (10.5-14.5)
[2020-02-20 09:29] LABS: WBC 1.8 thou/uL (4.0-11.0)
--- NOTE | 2020-02-20 09:33 | NUR ---
DR. DAMON AND DR. WHITEHEAD AT BEDSIDE. ORDERS OBTAINED FOR HR MANAGEMENT
--- NOTE | 2020-02-20 10:39 | NUR ---
TALKED WITH CONNOR SON ON PHONE AND UPDATED ON PT CONDITION AND TRANSFER FOR [facility] BEING HELD OFF AT THIS TIME DUE TO FEVER, LEVOPHED GTT, AND WBC COUNT
[2020-02-20 11:30] LABS: METAMYELOCYTES 5 %; NUCLEATED RBCS 3 /100WBC; PLATELET ESTIMATE NORMAL
--- NOTE | 2020-02-20 13:45 | NUR ---
TALKED WITH SUBHASH RYAN ON THE PHONE. UPDATE GIVEN
--- NOTE | 2020-02-20 13:48 | NUR ---
FAXED CLINICAL UPDATE TO [facility] SPOKE WITH KATIA IN ADM SHE RECEIVED UPDATE. DP TO FOLLOW.
--- NOTE | 2020-02-20 15:30 | NUR ---
DISCHARGE TO [facility] HAD BEEN ANTICIPATED THIS DAY. PT WAS FEBRILE AND WAS AGAIN RECIEVING LEVOPHED. DC WAS CANCLED. KATIA BOWER LIAISON IS AWARE AND INDICATED THAT THEY WOULD BE ABLE TO ACCEPT OVER HE WEEKEND SHOULD SHE BE MEDICALLY STABLE. SHOULD PT BE MEDICALLY STABLE [facility] CONTACT KATIA AT . ORDERS WOULD NEED TO BE FAXED TO . CHART COPY MADE. [facility] FORM WOULD NEED COMPLETED. CM TO FOLLOW INDICATED [facility] DC PLANNING.
--- NOTE | 2020-02-20 18:06 | NUR ---
TALKED WITH CONNOR SON ON THE PHONE UPDATE GIVEN. PT WAS SUPPOSED TO GO TO [facility] BUT NOT SPIKED TEMP AND ENDED UP ON LEVOPHED. LEVOPHED HAS NOT BEEN WEANED OFF. TMAX OF 100.5 @ 0800 THIS AM. NO TEMPS FOR REST OF SHIFT. PT IS DROWSY BUT RESPONSIVE. BOLUS TF DUE TO NO TUBE FEEDING PUMPS. 200ML Q4HR. RESIDUALS HIGH @ 190, 120. BILE COLORED CONTENTS.
--- NOTE | 2020-02-20 19:27 | NUR ---
RECEIVED REPORT FROM DANIEL MCCRAY. ASSUMED PATIENT CARE AT THIS TIME.
[2020-02-21] VITALS (130 sets, daily range): BP systolic 63–126; BP diastolic 14–80
[2020-02-21 06:46] LABS: MCH 31.9 pg (26.0-34.0); MCHC 33.5 g/dL (28.0-37.0); MCV 95.4 fL (80.0-100.0); RBC 2.83 mil/uL (4.20-5.00); RDW 17.9 % (10.5-14.5)
[2020-02-21 06:47] LABS: ALBUMIN 1.8 g/dL (3.4-5.0); CALCIUM 8.4 mg/dL (8.5-10.1); TOTAL BILIRUBIN 0.6 mg/dL (0.2-1.0); TOTAL PROTEIN 5.2 g/dL (6.4-8.2)
[2020-02-21 06:50] LABS: POTASSIUM 2.8 mmol/L (3.5-5.1)
[2020-02-21 06:54] LABS: WBC 0.8 thou/uL (4.0-11.0)
[2020-02-21 10:14] LABS: URINE BILIRUBIN NEGATIVE (Negative); URINE BLOOD 2+ (Negative); URINE CLARITY CLEAR; URINE COLOR YELLOW; URINE GLUCOSE-RANDOM* NEGATIVE (Negative); URINE KETONES TRACE (Negative); URINE LEUKOCYTES-REFLEX NEGATIVE (Negative); URINE NITRITE-REFLEX NEGATIVE (Negative); URINE PROTEIN (DIPSTICK) 1+ (Negative); URINE SPECIFIC GRAVITY 1.025 (1.005-1.035); URINE UROBILINOGEN 0.2 E.U./dl (0.2-1.0)
[2020-02-21 10:40] LABS: FINE GRANULAR CASTS 0-3 Few /LPF (None Seen); SQUAMOUS 0-3 Few /LPF (0-3)
[2020-02-21 10:41] LABS: URINE RBC 0-2 Rare /HPF (0-2); URINE WBC-REFLEX 0-5 Rare /HPF (0-5)
[2020-02-21 10:42] LABS: AMORPHOUS URATES Few /LPF (None Seen)
[2020-02-21 12:56] LABS: ABSOLUTE NEUTROPHILS 0.5 thou/uL (1.4-8.2); METAMYELOCYTES 8 %; MYELOCYTES 2 %; NUCLEATED RBCS 3 /100WBC
[2020-02-21 12:57] LABS: ANISOCYTOSIS 1+
[2020-02-21 12:59] LABS: LARGE PLATELETS OCCASIONAL; PLATELET COUNT 101 thou/uL (150-400)
--- NOTE | 2020-02-21 13:54 | NUR ---
CONSULTED TO PLACE A SECOND LINE FOR ACCESS. THE PRIOR LINE PLACED BY IR ON 02/16 IS A DOUBLE LUMEN ACCESS AND THIS PATIENT REQUIRES ADDITIONAL IV MEDS AND CVP. A ORDER AND CONSENT WAS OBTAINED AND A LEFT IJ CENTRAL LINE WAS PLACED PER HOSPITAL POLICY AFTER A BEDSIDE TIMEOUT WAS COMPLETED. THE CENTRAL LINE WAS TRIMMED TO 32CM AND ADVANCED WITHOUT DIFFICULTY. A STAT CHEST XRAY SHOWED LINE IN [facility]. LINE WITHDREW SLIGHTLY PER RADIOLOGIST REQUEST AND A 2ND CHEST XRAY WAS ORDERED FOR TIP PLACEMENT CONFIRMATION
[2020-02-21 19:06] LABS: BE(vivo) -5.6 mmol/L (-2 to +3); HCO3 23.3 mmol/L (22.0-26.0); PCO2 64.1 mmHg (35.0-45.0); PO2 67.1 mmHg (80.0-100.0); pH 7.179 (7.360-7.450); sO2 87.8 % (92.0-98.0)
--- NOTE | 2020-02-21 20:30 | NUR ---
PT FEBRILE IN BEGINNING OF SHIFT, WNL BY MIDMORNING. AFEBRILE FOR REMAINDER OF SHIFT. PT MORE ALERT IN THE MORNING, HAS PROGRESSIVELY BECOME MORE LETHARGIC THE SHIFT PROGRESSED. PT HAS SCANT AMOUNT OF URINE OUTPUT THIS SHIFT. BP SOFT THROUGHOUT SHIFT. NEPHROLOGY, HOSPITALIST, PIPE THREADING MACHINE OPERATOR, & PERFORMANCE TEST ARCHITECT ALL AWARE OF PT STATUS W/ UNSTABLE VS & DECREASED UOP. PT RECEIVED MULTIPLE ORDERS FOR LABS & MEDICATIONS. ALL ORDERS CARRIED OUT & MEDS ADMINISTERED. NC BP CONTINUED TO DECLINE THROUGHOUT SHIFT. PT BP MORE STABLE AT SHIFT CHANGE. PERFORMANCE TEST ARCHITECT CALLED & NOTIFIED OF PT LAB VALUES, MEDS, VS, AND VENT SETTINGS. PHYSICIAN HAS ATTEMPTED TO CALL PT SON REGARDING PT STATUS MULTIPLE TIMES WITH MESSAGES LEFT FOR RETURN CALL. NURSE SPOKE WITH PT SON TODAY, PROVIDED UPDATE ON PT STATUS. PT SON ASKING ABOUT DIFFERENT MEDICATIONS HE HAS READ ON INTERNET REGARDING TREATMENT FOR COVID. WENT OVER MEDS THAT WERE ADMINISTERED TO PT AND TREATMENT PROVIDED FOR PT. PT SONS STATES THAT ALL OF FAMILY HAS HAD COVID WITHOUT SYMPTOMS. ATTEMPTED TO PROVIDE EDUCATION REGARDING TREATMENT BEING TAILORED TOWARD EACH INDIVIDUAL PERSON'S NEEDS AND THAT CASES ARE NOT ALWAYS THE EXACT SAME DEPENDENT ON THE PERSON. ATTEMPTED TO CALL PT SON APPROX 1945 TO PROVIDE UPDATE ON PT, NO ANSWER, LEFT MESSAGE.
--- NOTE | 2020-02-21 20:55 | NUR ---
1899- RECEIVED REPORT FROM RAVINDRA MCCRAY. ASSUMED PATIENT CARE. 1909- REPORTED CRITICAL ABGs VALUES TO DR WHITEHEAD. ORDER TO GIVE 3 AMPS BICARB AND START BICARB GTT. 2049-SPOKE WITH PATIENT'S SON CONNOR VIA PHONE. GAVE HIM AN UPDATE ON HIS MOTHER'S STATUS. DR WHITEHEAD HAD TRIED TO CONNECT WITH PATIENT'S SON THREE TIMES PREVIOUSLY WITHOUT RESPONSE.
[2020-02-22] VITALS (56 sets, daily range): BP systolic 0–132; BP diastolic 0–73
[2020-02-22 03:25] LABS: BE(vivo) -8.2 mmol/L (-2 to +3); HCO3 21.5 mmol/L (22.0-26.0); PO2 62.6 mmHg (80.0-100.0); sO2 83.5 % (92.0-98.0)
[2020-02-22 03:26] LABS: PCO2 66.1 mmHg (35.0-45.0)
[2020-02-22 04:40] LABS: MCHC 31.7 g/dL (28.0-37.0); PLATELET COUNT 45 thou/uL (150-400); RBC 1.95 mil/uL (4.20-5.00); RDW 18.4 % (10.5-14.5)
[2020-02-22 04:50] LABS: HEMATOCRIT 19.7 % (37.0-47.0); HEMOGLOBIN 6.3 gm/dL (12.0-15.0); WBC 1.7 thou/uL (4.0-11.0)
[2020-02-22 05:08] LABS: FIBRINOGEN 358.2 mg/dL (210-360); INR 2.4; PROTIME 24.4 Seconds (9.3-11.4)
[2020-02-22 05:11] LABS: ALBUMIN 0.8 g/dL (3.4-5.0); ANION GAP 7 mmol/L (7-16); BUN 40 mg/dL (7-18); CHLORIDE 96 mmol/L (98-107); CO2 41 mmol/L (21-32); CREATININE 1.5 mg/dL (0.6-1.0); SODIUM 144 mmol/L (136-145); TOTAL BILIRUBIN 1.3 mg/dL (0.2-1.0); TOTAL PROTEIN 2.9 g/dL (6.4-8.2)
[2020-02-22 05:30] LABS: SGOT 4282 U/L (15-37); SGPT 4708 U/L (30-65)
[2020-02-22 05:33] LABS: POTASSIUM 2.6 mmol/L (3.5-5.1)
[2020-02-22 05:34] LABS: CALCIUM < 5.0 mg/dL (8.5-10.1); GLUCOSE 770 mg/dL (74-106)
[2020-02-22 06:15] LABS: ABSOLUTE NEUTROPHILS 0.5 thou/uL (1.4-8.2); BLASTS 1 %; CORRECTED WBC 1.2 thou/uL (4.0-11.0); METAMYELOCYTES 20 %; MYELOCYTES 15 %; NUCLEATED RBCS 46 /100WBC; PROMYELOCYTES 1 %
[2020-02-22 06:16] LABS: ANISOCYTOSIS 1+; LARGE PLATELETS SEVERAL; PLATELET ESTIMATE DECREASED
--- NOTE | 2020-02-22 07:50 | NUR ---
0740>>>>>>>> call placed to Ko Miller-son to notify him of the extreme critical and deteriorating condition of his mother. questions answered. 0743>>>>>>>> discussed with MAHENDRA Navarreteautomation manager requesting him to contact Margarita Redding, press offbearer for permission to allow family present since pt's condition is grave and imminent. 0748>>>>>>>> Call returned from Landon. Two designated visitors may be present outside to glass doors to the pt room to visualize pt. Ko immediately notified. he verbalized understanding and verbalized his sister would be present. 0940>>>>>>>> spoke with Dr. Duran related to map<65 despite current maxed vasoactive gtts. additional order received for dopamine.
--- NOTE | 2020-02-22 10:15 | NUR ---
0925>>>>>>>>>>> Dr. Jackson present. 1015>>>>>>>>>>> prbc's infusing, dopamine 20 mcg/kg/min, no significant improvement.
--- NOTE | 2020-02-22 20:09 | NUR ---
1130>>>>>>> Bertrand Miller-son and Carley Stokes-daughter present. updated on pt status, provided support while they were looking in the icu doors into pt room. adjusted pt so she was more visible and closer to the glass doors. they spoke with her providing her support, gratefulness for her in their lives... and gave her "permission to go". pt status continued to deteriorate very frequently unable to obtain a bp, unable to palpate pulses, resp therapy previously unable to obtain abg's since also unable to palpate a pulse, lung rhonci was louder than heart sounds. intermittent very low bp's despite all vasoactive gtt maxed. 1215>>>>>>>> Comfort care ordered obtained from Dr. Duran. He stated, he spoke with Dr. Jackson whom was currently placing comfort care orders. pt pupils 5, brisk, otherwise nonresponsive. [id number]>>>>>>>> Family conveyed their feeling that there mother was gone. RN recently checked pupils both 6cm and fixed. Both son and daughter in agreement to discontinue gtt's. within minutes heart rate decreased to 47, then 30's, then asystole. no bp, no heart beat, no breathing when vent off. confirmed by Yousuf Petit RN. 1304>>>>>>>>>>>>> Completed Body Release Form, MT[employer] Donor Form, Nsing Summary Worksheet. pt's cell phone sent to Security, Bertrand- son notified. notified [facility] Security- [facility] [place] [facility] [place] appropiate paperwork.
== END 2020-02-22 13:05 | DRG 4 ==
LOC: ER 14:31 → EROBS 17:51 → 3W 17:51 → 2N 17:51 → 3W 01-16 14:54 → ICU 01-20 01:45 → 3W 01-27 22:37 → ICU 01-29 01:42
PROVIDERS: Emergency Medicine; Hospitalist; Internal Medicine; Internal Medicine Nephrology; Internal Medicine Pulmonary Disease; Nurse Practitioner; Nurse Practitioner Family; Pediatrics; Specialist; Surgery; ADMIT Internal Medicine; ATTEND Internal Medicine
PROC: XW033E5 Introduction of Remdesivir Anti-infective into Peripheral Vein, Percutaneous Approach, New Technology Group 5 (ICD-10-PCS; 2020-01-16)
PROC: XW033E5 Introduction of Remdesivir Anti-infective into Peripheral Vein, Percutaneous Approach, New Technology Group 5 (ICD-10-PCS; 2020-01-17)
PROC: 5A09557 Assistance with Respiratory Ventilation, Greater than 96 Consecutive Hours, Continuous Positive Airway Pressure (ICD-10-PCS; 2020-01-18)
PROC: 02HV33Z Insertion of Infusion Device into Superior Vena Cava, Percutaneous Approach (ICD-10-PCS; 2020-01-20)
PROC: XW13325 Transfusion of Convalescent Plasma (Nonautologous) into Peripheral Vein, Percutaneous Approach, New Technology Group 5 (ICD-10-PCS; principal; 2020-01-21)
PROC: 30233N1 Transfusion of Nonautologous Red Blood Cells into Peripheral Vein, Percutaneous Approach (ICD-10-PCS; 2020-01-22)
PROC: 02HV33Z Insertion of Infusion Device into Superior Vena Cava, Percutaneous Approach (ICD-10-PCS; 2020-01-23)
PROC: 5A09357 Assistance with Respiratory Ventilation, Less than 24 Consecutive Hours, Continuous Positive Airway Pressure (ICD-10-PCS; 2020-01-23)
PROC: 5A09557 Assistance with Respiratory Ventilation, Greater than 96 Consecutive Hours, Continuous Positive Airway Pressure (ICD-10-PCS; 2020-01-24)
PROC: 5A09357 Assistance with Respiratory Ventilation, Less than 24 Consecutive Hours, Continuous Positive Airway Pressure (ICD-10-PCS; 2020-01-29)
PROC: 5A1955Z Respiratory Ventilation, Greater than 96 Consecutive Hours (ICD-10-PCS; 2020-01-29)
PROC: 0BH18EZ Insertion of Endotracheal Airway into Trachea, Via Natural or Artificial Opening Endoscopic (ICD-10-PCS; 2020-01-29)
PROC: 0B110F4 Bypass Trachea to Cutaneous with Tracheostomy Device, Open Approach (ICD-10-PCS; 2020-02-13)
PROC: 0DH63UZ Insertion of Feeding Device into Stomach, Percutaneous Approach (ICD-10-PCS; 2020-02-13)
PROC: 5A1955Z Respiratory Ventilation, Greater than 96 Consecutive Hours (ICD-10-PCS; 2020-02-13)
PROC: 0JH63XZ Insertion of Tunneled Vascular Access Device into Chest Subcutaneous Tissue and Fascia, Percutaneous Approach (ICD-10-PCS; 2020-02-17)
PROC: 02HV33Z Insertion of Infusion Device into Superior Vena Cava, Percutaneous Approach (ICD-10-PCS; 2020-02-17)
PROC: B548ZZA Ultrasonography of Superior Vena Cava, Guidance (ICD-10-PCS; 2020-02-17)
PROC: 02HV33Z Insertion of Infusion Device into Superior Vena Cava, Percutaneous Approach (ICD-10-PCS; 2020-02-21)
DX: A41.89 Other specified sepsis (principal); J12.89 Other viral pneumonia; U07.1 COVID-19; I50.33 Acute on chronic diastolic (congestive) heart failure; R65.21 Severe sepsis with septic shock; G92 Toxic encephalopathy; J96.22 Acute and chronic respiratory failure with hypercapnia; J96.21 Acute and chronic respiratory failure with hypoxia; I48.20 Chronic atrial fibrillation, unspecified; J44.1 Chronic obstructive pulmonary disease with (acute) exacerbation; J44.0 Chronic obstructive pulmonary disease with (acute) lower respiratory infection; Z68.43 Body mass index [BMI] 50.0-59.9, adult; I13.0 Hypertensive heart and chronic kidney disease with heart failure and stage 1 through stage 4 chronic kidney disease, or unspecified chronic kidney disease; N17.9 Acute kidney failure, unspecified; E66.2 Morbid (severe) obesity with alveolar hypoventilation; E87.0 Hyperosmolality and hypernatremia; E46 Unspecified protein-calorie malnutrition; E78.5 Hyperlipidemia, unspecified; K21.9 Gastro-esophageal reflux disease without esophagitis; N18.3 Chronic kidney disease, stage 3 (moderate); B36.9 Superficial mycosis, unspecified; F41.9 Anxiety disorder, unspecified; R13.10 Dysphagia, unspecified; I95.9 Hypotension, unspecified; D64.9 Anemia, unspecified; D69.6 Thrombocytopenia, unspecified; A41.50 Gram-negative sepsis, unspecified; Z51.5 Encounter for palliative care; Z66 Do not resuscitate; E11.22 Type 2 diabetes mellitus with diabetic chronic kidney disease; E87.5 Hyperkalemia; R41.0 Disorientation, unspecified; K75.9 Inflammatory liver disease, unspecified; N93.9 Abnormal uterine and vaginal bleeding, unspecified; E11.65 Type 2 diabetes mellitus with hyperglycemia; T38.0X5A Adverse effect of glucocorticoids and synthetic analogues, initial encounter; Y92.89 Other specified places as the place of occurrence of the external cause; Z99.81 Dependence on supplemental oxygen; Z98.891 History of uterine scar from previous surgery; Z79.84 Long term (current) use of oral hypoglycemic drugs; Z79.82 Long term (current) use of aspirin; Z79.899 Other long term (current) drug therapy; Z87.891 Personal history of nicotine dependence; Z90.11 Acquired absence of right breast and nipple; Z91.19 Patient's noncompliance with other medical treatment and regimen
CPT/HCPCS: 10078; 10081; 10203; 10879; 50101; 50386; 50403; 50550; 56525; 62110; 62900